=== PATIENT | male | born 1965 | race Caucasian/White ===

== ENCOUNTER 2016-03-18 19:42 | Inpatient (IN) | payer OTHER ==
[2016-03-18 19:47] VITALS: BMI 46.1
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
[2016-03-18] MEDS ORDERED: CLINDAMYCIN HCL 300 MG CAPSULE PO ONE (20:15)
[2016-03-18] MEDS ORDERED: KETOROLAC TROMETHAMINE 60 MG/2 ML VIAL IM ONE (20:16)
[2016-03-18] MEDS ORDERED: CLINDAMYCIN HCL 150 MG CAPSULE (FP) ONE (20:21)
[2016-03-18] MEDS ORDERED: KETOROLAC TROMETHAMINE 30 MG/1 ML VIAL ONE (20:21)
[2016-03-18 20:55] LABS: BASOPHIL 1.1 % (0-2.0); EOSINOPHIL 1.1 % (0-4.5); MCH 30.4 pg (25.7-33.7); MCHC 32.9 g/dl (32.0-35.9); MEAN CELL VOLUME 92.4 fl (80-96); MEAN PLT VOLUME 8.7 fl (7.5-11.1); NEUTROPHILS 70.5 % (42.8-82.8); PLATELET COUNT 191 K/MM3 (134-434); RDW 12.4 % (11.9-15.9)
[2016-03-18 21:07] LABS: ALBUMIN 3.4 g/dl (3.5-5.0); BILIRUBIN,TOTAL 2.1 mg/dl (0.2-1.0); CALCIUM 8.3 mg/dl (8.4-10.2); CPK(DFH) 347 IU/L (38-174); CREATININE 1.5 mg/dl (0.6-1.3)
[2016-03-18] MEDS ORDERED: INSULIN REGULAR HUMAN 100 UNITS/ML *VIAL IVPUSH ONE (21:15)
[2016-03-18] MEDS ORDERED: MAG HYDROX/AL HYDROX/SIMETH 30 ML UNIT-DOSE CUP PO ONE (21:18)
[2016-03-18 21:20] LABS: TROPONIN I (DFP) < 0.03 ng/ml (0.03-0.50)
[2016-03-18] MEDS ORDERED: INSULIN REGULAR HUMAN 100 UNITS/ML *VIAL ONE ×2 (21:20→22:32)
[2016-03-18] MEDS ORDERED: MAG HYDROX/AL HYDROX/SIMETH 30 ML UNIT-DOSE CUP ONE (21:25)
[2016-03-18 21:27] LABS: CK MB 3.8 ng/ml (0.3-4.0)
--- NOTE | 2016-03-18 21:42 | HP ---
CHIEF COMPLAINT: Chest Pain, Tooth pain/ Facial Swelling, Cold Symptoms PCP: Dr. Reymundo Huertas HISTORY OF PRESENT ILLNESS: This is a 50 year old man with a past medical history of Hypertension, Pre Diabetes(diet controlled), Morbid Obesity, Chronic Back Pain, Knee/Shoulder Pain , MRSA- Cellulitis RLE. Who presents to the emergency department with non- radiating chest pain, SOB x pm. Patient reports stress as part of the problem. He states "I was waiting to be seen by an [facility] doctor for a work related injury and the doctor never showed up, and I was upset and frustrated" He reports while sitting in his car he felt burning to his chest- heaviness " Hot senior instructional designer chest"-now resolved. He also reports having left upper molar pain and left facial swelling x 1 day. He reports having an appointment scheduled for next week for a left lower molar repair. He reports left nasal congestion, treated in the past for sinus infections. He reports having loose stools 3-5 daily without N/V abdominal pain or cramping, melena or hematochezia. Patient has not had a baseline colonoscopy. He denies any familial hx of Colorectal Ca. Patient reports weight gain approx. 60lbs secondary to his inability to continue PT and his exercise since injury to his left ACL. Patient reports feeling depressed, but denies suicidal or homicidal ideation. Patient denies fever, chills, SOB, cough, AP, N/V, constipation, dysuria ER course was notable for: (1) Serum Glucose 313 (2) BP 219/97 (3) EKG NSR with no ST or TWI (4) CE neg x1 Recent Travel: None PAST MEDICAL HISTORY: See HPI PAST SURGICAL HISTORY: Right Knee Replacement Rotator Cuff Social History: Smoking: Occasional, Cigar Alcohol: None Drugs: None Family History: Non-Contributory Allergies shellfish derived Allergy (Severe, Verified 07/24/14 05:15) Hives HOME MEDICATIONS: Medication Instructions Recorded Tramadol HCl [Ultram] 50 mg PO PRN PRN 03/18/16 REVIEW OF SYSTEMS CONSTITUTIONAL: loss of appetite Absent: fever, chills, diaphoresis, generalized weakness, malaise, weight change HEENT: nasal congestion mouth swelling, facial swelling Absent: rhinorrhea, throat pain, throat swelling, difficulty swallowing, ear pain, eye pain, visual changes CARDIOVASCULAR: chest pain, Absent: syncope, palpitations, irregular heart rate, lightheadedness, peripheral edema RESPIRATORY: shortness of breath Absent: cough, dyspnea with exertion, orthopnea, wheezing, stridor, hemoptysis GASTROINTESTINAL: diarrhea Absent: abdominal pain, abdominal distension, nausea, vomiting, constipation, melena, hematochezia GENITOURINARY: Absent: dysuria, frequency, urgency, hesitancy, hematuria, flank pain, genital pain MUSCULOSKELETAL: Absent: myalgia, arthralgia, joint swelling, back pain, neck pain SKIN: Absent: rash, itching, pallor HEMATOLOGIC/IMMUNOLOGIC: Absent: easy bleeding, easy bruising, lymphadenopathy, frequent infections ENDOCRINE: Absent: unexplained weight gain, unexplained weight loss, heat intolerance, cold intolerance NEUROLOGIC: Absent: headache, focal weakness or paresthesias, dizziness, unsteady gait, seizure, mental status changes, bladder or bowel incontinence PSYCHIATRIC: depression Absent: anxiety, suicidal or homicidal ideation, hallucinations. PHYSICAL EXAMINATION Vital Signs - 24 hr 03/18/16 03/18/16 19:45 21:00 Temperature 98.1 F Pulse Rate 90 Pulse Rate [ 88 Radial] Respiratory 18 18 Rate Blood Pressure 219/97 Blood Pressure 174/98 [Left Arm] O2 Sat by Pulse 98 95 Oximetry (%) GENERAL: Awake, morbidly obese, alert, and fully oriented, in no acute distress. HEAD: Normal with no signs of trauma. EYES: Pupils equal, round and reactive to light, extraocular movements intact, sclera anicteric, conjunctiva clear. No lid lag. EARS, NOSE, THROAT: tenderness to left maxillary. Ears normal, nares patent, oropharynx clear without exudates. Moist mucous membranes. NECK: Normal range of motion, supple without lymphadenopathy, JVD, or masses. LUNGS: Breath sounds equal, clear to auscultation bilaterally. No wheezes, and no crackles. No accessory muscle use. HEART: Regular rate and rhythm, normal S1 and S2 without murmur, rub or gallop. chest pain is non-reproducible to palpation ABDOMEN: Soft, obese, nontender, not distended, normoactive bowel sounds, no guarding, no rebound, no masses. No hepatomegaly or splenomegaly. MUSCULOSKELETAL: Normal range of motion at all joints. No bony deformities or tenderness. No CVA tenderness. UPPER EXTREMITIES: 2+ pulses, warm, well-perfused. No cyanosis. No clubbing. Cap refill <2 seconds. No peripheral edema. LOWER EXTREMITIES: 2+ pulses, warm, well-perfused. No calf tenderness.+1 Bilaterally peripheral edema. NEUROLOGICAL: Cranial nerves II-XII intact. Normal speech. Normal gait. PSYCHIATRIC: Cooperative. Good eye contact. Appropriate mood and affect. SKIN: Warm, dry, normal turgor, no rashes or lesions noted. Laboratory Results - last 24 hr 03/18/16 03/18/16 03/18/16 20:31 20:31 20:31 WBC 7.0 RBC 4.67 Hgb 14.2 Hct 43.1 MCV 92.4 MCHC 32.9 RDW 12.4 Plt Count 191 D MPV 8.7 Neutrophils % 70.5 D Lymphocytes % 20.4 D Monocytes % 6.9 Eosinophils % 1.1 Basophils % 1.1 Sodium 133 L Potassium 5.3 H D Chloride 100 Carbon Dioxide 25 Anion Gap 8 BUN 15 Creatinine 1.5 H D Creat Clearance w eGFR 49.54 Random Glucose 313 H* D Calcium 8.3 L Total Bilirubin 2.1 H D AST 47 H D ALT 20 Alkaline Phosphatase 76 D Creatine Kinase 347 H D CK-MB (CK-2) 3.8 CK-MB (CK-2) Rel Index 1.1 Troponin I < 0.03 L Total Protein 6.0 L Albumin 3.4 L 03/18/16 20:31 WBC RBC Hgb Hct MCV MCHC RDW Plt Count MPV Neutrophils % Lymphocytes % Monocytes % Eosinophils % Basophils % Sodium Potassium Chloride Carbon Dioxide Anion Gap BUN Creatinine Creat Clearance w eGFR Random Glucose Calcium Total Bilirubin AST ALT Alkaline Phosphatase Creatine Kinase CK-MB (CK-2) Cancelled CK-MB (CK-2) Rel Index Troponin I Total Protein Albumin ASSESSMENT/PLAN: This is a 50 year old man with a PMHx of: HTN, Pre-DM (diet controlled), Morbid Obesity, Chronic Back/Shoulder Pain. Who presents to the ED with chest pain, SOB , L- facial/tooth pain. Admitted to Telemetry for Chest Pain r/o ACS, Uncontrolled DM, Dental Abscess for further evaluation of their emergent condition. Plan: 1. Chest Pain - Likely secondary to Stress vs ACS - Tele monitoring - HEART Score 4 - AUDI 10 - EKG reviewed no ST or TWI - CE neg x1 - Will continue to trend - Appreciate Cardiology Consult - ASA - Echo in am - Mildly elevated K, will monitor closely and treat accordingly 2. HTN - Uncontrolled - Will resume Norvasc - Consider BB - Monitor BP - Monitor renal function 3. Diabetes Mellitus - Uncontrolled - Likely secondary to Metabolic Syndrome - Insulin given in ED - BGMs - ISS - HgbA1C in am - Social Work Consult- patient reports inability to pay for DM meds - f/u with endocrinology and PCP 4. Dental Abscess - Clindamycin given in ED - Will switch to Augmentin for expanded spectrum - Percocet prn - f/u with Dental upon d/c 4. CAM - Likely secondary to heavy NSAID use vs Uncontrolled DM - Renal US 11/2014- morphologically normal kidneys with no evidence of hydronephrosis or acute pathology - Monitor renal function - f/u with Nephrology outpatient 5. Morbid Obesity - Consider Diet and exercise - f/u with Bariatrics for weight management 6. F/E/N - PO Fluids - Replete lytes prn - Low Na, Low Fat, 1800 ADA Diet 7. DVT/PPI Prophylaxis - OOB - SCDs - Heparin SQ - PPI Code Status: Patient is a Full Code Problem List - Problem (1) Chest pain Code(s): R07.9 - CHEST PAIN, UNSPECIFIED Qualifiers: Chest pain type: precordial chest pain Qualified Code(s): R07.2 - Precordial pain (2) Uncontrolled hypertension Code(s): I10 - ESSENTIAL (PRIMARY) HYPERTENSION (3) Elevated blood pressure, situational Code(s): I10 - ESSENTIAL (PRIMARY) HYPERTENSION (4) Hyperglycemia Code(s): R73.9 - HYPERGLYCEMIA, UNSPECIFIED (5) Tooth abscess Code(s): K04.7 - PERIAPICAL ABSCESS WITHOUT SINUS (6) Morbid exogenous obesity Code(s): E66.01 - MORBID (SEVERE) OBESITY DUE TO EXCESS CALORIES (7) DVT prophylaxis Code(s): ERG3732 - Visit type - Emergency Visit Emergency Visit: Yes ED Registration Date: 03/18/16 Care time: The patient presented to the Emergency Department on the above date and was hospitalized for further evaluation of their emergent condition. - New Patient This patient is new to me today: Yes Date on this admission: 03/18/16 - Critical Care Critical Care patient: No
[2016-03-18] MEDS ORDERED: HEMOQUE TEST 1 EACH EACH ONE (22:27)
[2016-03-18] MEDS ORDERED: HEPARIN NA (PORCINE) 5,000 UNITS/ML 1ML VIAL ONE (22:32)
[2016-03-18] MEDS: INSULIN SLIDING SCALE (NOVOLOG) 1 VIAL SQ SCH (22:36)
[2016-03-18] MEDS: HEPARIN NA (PORCINE) 5,000 UNITS/ML 1ML VIAL SQ SCH (22:37)
[2016-03-18 23:38] LABS: URINE APPEARANCE Clear; URINE BILIRUBIN 1+ (NEGATIVE); URINE BLOOD Trace-lysed (NEGATIVE); URINE GLUCOSE (UA) 2+ (NEGATIVE); URINE KETONE 1+ (NEGATIVE); URINE LEUK ESTERASE Negative (NEGATIVE); URINE NITRITE Negative (NEGATIVE); URINE UROBILINOGEN 1.0 E.U/dl (0.2-1.0)
[2016-03-18 23:39] LABS: URINE COLOR YELLOW; URINE PROTEIN 3+ (NEGATIVE)
[2016-03-18] MEDS ORDERED: OXYCODONE/APAP 5/325MG COMBO TABLET ONE (23:41)
[2016-03-18 23:45] LABS: URINE WBC 0-2 (3-5)
[2016-03-18 23:46] LABS: URINE BACTERIA FEW /hpf (NEGATIVE)
[2016-03-18] MEDS: OXYCODONE/APAP 5/325MG COMBO TABLET PO PRN (23:47)
[2016-03-19] MEDS ORDERED: amLODIPine BESYLATE 10 MG TABLET (FP) PO ONE (00:21)
[2016-03-19] MEDS ORDERED: amLODIPine BESYLATE 5 MG TABLET (FP) ONE (00:32)
[2016-03-19] MEDS ORDERED: ASPIRIN 81 MG CHEWABLE TABLETS PO ONE (02:31)
[2016-03-19 02:49] LABS: TROPONIN I < 0.02 ng/ml (0.00-0.05)
[2016-03-19] MEDS: HEPARIN NA (PORCINE) 5,000 UNITS/ML 1ML VIAL SQ SCH ×3 (05:30→21:17)
[2016-03-19] MEDS: OXYCODONE/APAP 5/325MG COMBO TABLET PO PRN ×3 (05:30→18:19)
[2016-03-19 06:27] LABS: BASOPHIL 0.4 % (0-2.0); EOSINOPHIL 1.5 % (0-4.5); MCH 30.5 pg (25.7-33.7); MCHC 32.1 g/dl (32.0-35.9); MEAN CELL VOLUME 95.1 fl (80-96); MEAN PLT VOLUME 9.3 fl (7.5-11.1); NEUTROPHILS 63.7 % (42.8-82.8); PLATELET COUNT 206 K/MM3 (134-434); RDW 13.3 % (11.9-15.9); WHITE BLOOD COUNT 7.1 K/mm3 (4.0-10.0)
[2016-03-19] MEDS: INSULIN SLIDING SCALE (NOVOLOG) 1 VIAL SQ SCH ×4 (06:44→21:18)
[2016-03-19] MEDS ORDERED: LABETALOL HCL 5 MG/1 ML (100MG/20 ML VIAL) IVPUSH ONE ×2 (06:44→10:45)
[2016-03-19 06:52] LABS: CALCIUM 8.7 mg/dL (8.5-10.1); CREATININE 1.3 mg/dL (0.7-1.3); MAGNESIUM 2.1 mg/dL (1.8-2.4); PHOSPHOROUS 3.5 mg/dL (2.5-4.9)
[2016-03-19 06:57] LABS: TROPONIN I < 0.02 ng/ml (0.00-0.05)
[2016-03-19 07:03] LABS: THYROID STIMULATING HORMONE 1.93 uIU/ml (0.358-3.74)
[2016-03-19 07:08] LABS: CHOLESTEROL 166 mg/dL (50-200); LDL CHOLESTEROL (ONLY SJRH) 88 mg/dL (5-100)
[2016-03-19] MEDS ORDERED: AMOX TR/POT CLAV 875MG/125MG TABLETS (FP) PO SCH (08:00)
--- NOTE | 2016-03-19 08:18 | PN ---
Physical Exam: SUBJECTIVE: Patient seen and examined, patient reports pain to left-sided face, patient denies any chest pain or shortness of breath he reports his chest pain resolved after taking Mylanta yesterday OBJECTIVE: patient is a 50 y/o male with a past medical history of hypertension , IDDM, and cellulitis. Patient reported one episode of chest pain yesterday that resolved after Mylanta. He was admitted from the emergency department for malignant hypertension. Vital Signs Period Temp Pulse Resp BP Sys/Kay Pulse Ox Last 24 Hr 97.9 F-98.4 F 87-89 18-18 160-194/84-111 98-99 PHYSICAL EXAMINATION GENERAL: The patient is awake, alert, and fully oriented, in no acute distress. HEAD: Normal with no signs of trauma EYES: PERRL, extraocular movements intact, sclera anicteric, conjunctiva clear. No ptosis. ENT: Ears normal, nares patent, oropharynx clear without exudates, dry mucous membranes. left upper 2nd molar, cracked, erythema to gumline, poor dentition erythema to soft palate, tender left maxilary sinus, no trismus noted, slight erythema noted to left cheek, no induration. no fluctance noted NECK: Trachea midline, full range of motion, supple. LUNGS: Breath sounds equal, clear to auscultation bilaterally, no wheezes, no crackles, no accessory muscle use. HEART: Regular rate and rhythm, S1, S2 without murmur, rub or gallop. ABDOMEN: Soft, nontender, nondistended, normoactive bowel sounds, no guarding, no rebound, no hepatosplenomegaly, no masses. EXTREMITIES: 2+ pulses, warm, well-perfused, no edema. NEUROLOGICAL: Cranial nerves II through XII grossly intact. Normal speech, gait not observed. PSYCH: Normal mood, normal affect. SKIN: Warm, dry, normal turgor, no rashes or lesions noted Laboratory Results - last 24 hr 03/18/16 03/19/16 03/19/16 23:30 01:45 01:45 WBC RBC Hgb Hct MCV MCHC RDW Plt Count MPV Neutrophils % Lymphocytes % Monocytes % Eosinophils % Basophils % Sodium Potassium Chloride Carbon Dioxide Anion Gap BUN Creatinine POC Glucometer Random Glucose Calcium Phosphorus Magnesium Creatine Kinase Cancelled 330 H Creatine Kinase Index 0.8 CK-MB (CK-2) 2.603 Troponin I Cancelled < 0.02 Triglycerides Cholesterol Total LDL Cholesterol HDL Cholesterol TSH Urine Color Yellow Urine Appearance Clear Urine pH 6.0 Ur Specific [place] >= 1.030 H Urine Protein 3+ H Urine Glucose (UA) 2+ H Urine Ketones 1+ H Urine Blood Trace-lysed Urine Nitrite Negative Urine Bilirubin 1+ H Urine Urobilinogen 1.0 e.u/dl Ur Leukocyte Esterase Negative Urine RBC 2-3 Urine WBC 0-2 Urine Bacteria Few 03/19/16 03/19/16 03/19/16 05:40 05:40 05:40 WBC 7.1 RBC 5.13 Hgb 15.6 Hct 48.8 MCV 95.1 MCHC 32.1 RDW 13.3 Plt Count 206 MPV 9.3 Neutrophils % 63.7 Lymphocytes % 25.6 D Monocytes % 8.8 D Eosinophils % 1.5 D Basophils % 0.4 Sodium 139 Potassium 4.0 Chloride 103 Carbon Dioxide 30 Anion Gap 6 L BUN 17 Creatinine 1.3 POC Glucometer Random Glucose 180 H Calcium 8.7 Phosphorus 3.5 Magnesium 2.1 Creatine Kinase 322 H Creatine Kinase Index CK-MB (CK-2) Troponin I < 0.02 Triglycerides Cholesterol Total LDL Cholesterol HDL Cholesterol TSH 1.93 D Urine Color Urine Appearance Urine pH Ur Specific [place] Urine Protein Urine Glucose (UA) Urine Ketones Urine Blood Urine Nitrite Urine Bilirubin Urine Urobilinogen Ur Leukocyte Esterase Urine RBC Urine WBC Urine Bacteria 03/19/16 03/19/16 05:45 05:45 WBC RBC Hgb Hct MCV MCHC RDW Plt Count MPV Neutrophils % Lymphocytes % Monocytes % Eosinophils % Basophils % Sodium Potassium Chloride Carbon Dioxide Anion Gap BUN Creatinine POC Glucometer 200.97171 Random Glucose Calcium Phosphorus Magnesium Creatine Kinase Creatine Kinase Index CK-MB (CK-2) Troponin I Triglycerides 85 Cholesterol 166 Total LDL Cholesterol 88 HDL Cholesterol 69 TSH Urine Color Urine Appearance Urine pH Ur Specific [place] Urine Protein Urine Glucose (UA) Urine Ketones Urine Blood Urine Nitrite Urine Bilirubin Urine Urobilinogen Ur Leukocyte Esterase Urine RBC Urine WBC Urine Bacteria Laboratory Tests 03/18/16 03/19/16 03/19/16 20:31 01:45 05:40 Troponin I < 0.03 L < 0.02 < 0.02 Active Medications Generic Name Dose Route Start Last Admin Trade Name Freq PRN Reason Stop Dose Admin Amlodipine Besylate 10 mg 03/20/16 10:00 Norvasc - PO DAILY JAY Amoxicillin/Clavulanate Potassium 1 tab 03/19/16 08:00 03/19/16 07:37 Augmentin - 875mg Tablet PO 1 tab BID@0800,1730 JAY Administration Heparin Sodium (Porcine) 5,000 unit 03/18/16 22:15 03/19/16 05:30 Heparin - SQ 5,000 unit TID JAY Administration Insulin Aspart 1 vial 03/18/16 22:00 03/19/16 06:44 Novolog Vial Sliding Scale - SQ 2 units ACHS JAY Administration Protocol Lactobacillus Acidophilus 1 tab 03/19/16 10:00 Bacid - PO DAILY JAY Oxycodone/Acetaminophen 2 combo 03/18/16 23:29 03/19/16 05:30 Percocet 5/325 - PO 2 combo Q6H PRN Administration PAIN LEVEL 6-10 Pantoprazole Sodium 20 mg 03/19/16 10:00 Protonix - PO BID [facility] ASSESSMENT/PLAN: 1. Card: Chest Pain r/o acs - less likely ACS pt report pain resolved after mylanta - troponin x 3 WNL - continous cardiac monitoring - continue daily ASA Hypertension - pmh of hypertension, has not taking BP medication due to financial constraints - restart norvasc, labetolol 10mg ordered, will start atenolol, b/p better controlled, strict monitoring - pending ECHO - appreciate cardiology input 2) Endo:IDDM - continue fingersticks achs with regular insulin coverage - pending hemoglobin a1 c 3) renal - CAM likely secondary to NSAID use vs uncontrolled HTN and IDDM - creatine 1.3 trending downward baseline 0.8 - pt appears dehydrated on exam, will give IVF - renal us (2015) noted, morphologically normal kidneys with no evidence of hydronephrosis or acute pathology 4) ID - pt was evaluated by [facility] dental clinic last week placed on clindamycin for ? abscess, worsening pain on exam with facial tenderness - pt is on augmentin, however, high clinical concern for worsening tooth abscess , appreciate ID consult for abx approval for unasyn - will need follow up with dental clinic at [facility]. F/E/N - low sodium diabetic diet ppx heparin ppi oob scc dispo: requires inpatient telemetry care Code Status: Patient is a Full Code Visit type - Emergency Visit Emergency Visit: Yes ED Registration Date: 03/18/16 Care time: The patient presented to the Emergency Department on the above date and was hospitalized for further evaluation of their emergent condition. - New Patient This patient is new to me today: Yes Date on this admission: 03/19/16 - Critical Care Critical Care patient: Yes Total Critical Care Time (in minutes): 45 Critical Care Statement: The care of this patient involved high complexity decision making to prevent further life threatening deterioration of the patient 's condition and/or to evalute & treat vital organ system(s) failure or risk of failure. - Discharge Referral Referred to [facility] Yes Physician Referral: Reymundo Huertas MD (Int Med)
[2016-03-19] MEDS ORDERED: HYDROmorphone HCL CARPU-JECT 1 MG/1 ML DISP.SYRIN IVPB ONE (08:41)
[2016-03-19] MEDS ORDERED: ONDANSETRON 4 MG/2 ML VIAL IVPB ONE (08:42)
[2016-03-19] MEDS ORDERED: SODIUM CHLORIDE 0.45% 1,000 ML IV SCH ×2 (08:45→14:52)
[2016-03-19] MEDS: amLODIPine BESYLATE 10 MG TABLET (FP) PO SCH (08:47)
--- NOTE | 2016-03-19 10:27 | PN ---
Progress Note (short form) - Note Progress Note: ID Consult dictated Dental infection/ possible abscess Facial cellulitis Morbid obesity Chest pain syndrome Empiric coverage, mouth nora with Unasyn 3gm IVPB q6h Outpatient dental evaluation
[2016-03-19] MEDS: ATENOLOL 25 MG TABLET (FP) PO SCH (10:30)
[2016-03-19] MEDS: PANTOPRAZOLE 20 MG TABLET (FP) PO SCH ×2 (10:30→21:17)
[2016-03-19] MEDS: ASPIRIN 81 MG CHEWABLE TABLETS PO SCH (10:30)
[2016-03-19] MEDS: LACTOBACILLUS ACIDOPHILUS 1 EACH TAB (FP) PO SCH (10:30)
[2016-03-19] MEDS: AMPICILLIN NA/SULBACTAM NA 3 GM in SODIUM CHLORIDE 100 ML IVPB SCH ×3 (11:00→21:17)
--- NOTE | 2016-03-19 11:42 | EKG ---
Test Reason : Blood Pressure : / mmHG Vent. Rate : 089 BPM Atrial Rate : 089 BPM P-R Int : 152 ms QRS Dur : 112 ms QT Int : 368 ms P-R-T Axes : 054 -08 057 degrees QTc Int : 447 ms NORMAL SINUS RHYTHM NON-SPECIFIC INTRA-VENTRICULAR CONDUCTION DELAY NO PREVIOUS ECGS AVAILABLE Confirmed by KIMBER NAILS MD ([id number]) on 03/19/2016 11:42:22 AM Referred By: Confirmed By:KIMBER NAILS MD
--- NOTE | 2016-03-19 11:54 | CONS ---
DATE OF CONSULTATION: DATE OF DICTATION: 03/19/2016 HISTORY OF PRESENT ILLNESS: The patient is a 50-year-old male who is evaluated for facial cellulitis. He is admitted to the hospital for evaluation of chest pain syndrome. He was incidentally found to have left facial cellulitis. The patient reports that he has had recent dentil issues. He has a crown, which recently broke and was causing him discomfort. He was scheduled to see a dentist within the next week. Over the past 24 hours, he developed pain, swelling, and redness involving the left malar area. He presented to the hospital with his chest pain syndrome and was noted to have a facial cellulitis. He denies any associated fever or chills. No reports of any facial trauma. Patient has had a history of cellulitis of the left lower extremity for which he was hospitalized in 2014. He is morbidly obese with prediabetes. PAST MEDICAL HISTORY: Positive for morbid obesity, hypertension, prediabetes, left leg cellulitis. ALLERGIES: To SHELLFISH. MEDICATIONS: Heparin, Bacid, Tenormin, Normodyne, Norvasc, aspirin, Percocet, Protonix. SOCIAL HISTORY: He is presently disabled secondary to orthopedic issues. He is a smoker. No history of illicit drug use. SYSTEMS REVIEW: Neurologic: No loss of consciousness, seizure activity, or focal weakness. Cardiac: As per HPI. Respiratory: Negative for cough or sputum production. Gastrointestinal: Negative for vomiting or diarrhea. Genitourinary: As per HPI. LABORATORY DATA: White count 7.1, hematocrit 48.8, platelet count 206. BUN 17, creatinine 1.3. Urinalysis 0-2 white cells. PHYSICAL EXAMINATION: General: He is awake and alert. He is not acutely toxic-appearing. He is morbidly obese. Vital signs: Temperature 97.9, blood pressure 160/84, pulse 89 and regular, respirations 20 per minute. HEENT: Sclerae anicteric. There is an area of erythema, induration, tenderness present over the left malar area. No fluctuance or crepitus. Examination of the mouth shows he has a missing left upper 2nd molar with exposed tooth fragments. No gingival erythema. Mild gingival swelling. No will pus. Neck: Supple with no palpable nodes. Heart: Heart sounds S1, S2. Lungs: Clear. Abdomen: Obese, soft, nontender. Extremities: Positive for edema. IMPRESSION: 1. Dental infection/possible dental abscess. 2. Facial cellulitis secondary to dental infection. 3. Morbid obesity. 4. Chest pain syndrome. Empiric coverage mouth floor with Unasyn 3 g IV piggyback every 6 hours, outpatient dental evaluation, cardiac workup. Thank you for the kind referral. KIMBER CESAR M.D. [id number]
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
[2016-03-19] MEDS ORDERED: PT OWN MED DRAWER 7, Y5N ONE ×2 (16:07→20:51)
[2016-03-19 22:12] LABS: URINE APPEARANCE Clear; URINE BILIRUBIN Negative (NEGATIVE); URINE BLOOD Trace-intact (NEGATIVE); URINE GLUCOSE (UA) 3+ (NEGATIVE); URINE KETONE Negative (NEGATIVE); URINE LEUK ESTERASE Negative (NEGATIVE); URINE NITRITE Negative (NEGATIVE); URINE UROBILINOGEN 0.2 E.U/dl (0.2-1.0)
[2016-03-19 22:36] LABS: URINE CREATININE 120.2 mg/dL
[2016-03-19 22:38] LABS: URINE COLOR YELLOW; URINE PROTEIN 2+ (NEGATIVE); URINE RBC 0-2 /hpf (0-3); URINE WBC 0-1 (3-5)
[2016-03-19 22:39] LABS: URINE BACTERIA FEW /hpf (NEGATIVE)
[2016-03-20] MEDS ORDERED: PT OWN MED DRAWER 7, Y5N ONE ×3 (02:14→09:50)
[2016-03-20] MEDS: OXYCODONE/APAP 5/325MG COMBO TABLET PO PRN ×2 (02:20→12:30)
[2016-03-20] MEDS: AMPICILLIN NA/SULBACTAM NA 3 GM in SODIUM CHLORIDE 100 ML IVPB SCH ×2 (02:21→09:58)
[2016-03-20 06:02] VITALS: BP 149/80; PULSE 77; TEMP 98.4
[2016-03-20] MEDS: HEPARIN NA (PORCINE) 5,000 UNITS/ML 1ML VIAL SQ SCH (06:45)
[2016-03-20] MEDS: INSULIN SLIDING SCALE (NOVOLOG) 1 VIAL SQ SCH ×2 (07:35→12:31)
[2016-03-20 08:39] LABS: CALCIUM 8.7 mg/dl (8.4-10.2)
--- NOTE | 2016-03-20 09:29 | PN ---
Progress Note, Physician History of Present Illness: Reports less L facial pain No c/o dental pain No fever/ chills - Current Medication List Current Medications: Active Medications Amlodipine Besylate (Norvasc -) 10 mg PO DAILY [facility] Last Admin: 03/19/16 08:47 Dose: 10 mg Aspirin (Asa -) 81 mg PO DAILY [facility] Last Admin: 03/19/16 10:30 Dose: 81 mg Atenolol (Tenormin -) 25 mg PO DAILY [facility] Last Admin: 03/19/16 10:30 Dose: 25 mg Heparin Sodium (Porcine) (Heparin -) 5,000 unit SQ TID [facility] Last Admin: 03/20/16 06:45 Dose: 5,000 unit Ampicillin Sodium/Sulbactam (Sodium 3 gm/ Sodium Chloride) 100 mls @ 200 mls/ hr IVPB Q6H-IV [facility] Last Admin: 03/20/16 02:21 Dose: 200 mls/hr Insulin Aspart (Novolog Vial Sliding Scale -) 1 vial SQ ACHS [facility] PRN Reason: Protocol Last Admin: 03/20/16 07:35 Dose: 2 units Lactobacillus Acidophilus (Bacid -) 1 tab PO DAILY [facility] Last Admin: 03/19/16 10:30 Dose: 1 tab Oxycodone/Acetaminophen (Percocet 5/325 -) 2 combo PO Q6H PRN PRN Reason: PAIN LEVEL 6-10 Last Admin: 03/20/16 02:20 Dose: 2 combo Pantoprazole Sodium (Protonix -) 20 mg PO BID [facility] Last Admin: 03/19/16 21:17 Dose: 20 mg - Objective Vital Signs: Vital Signs Temperature 98.4 F 03/20/16 06:00 Pulse Rate 77 03/20/16 06:00 Respiratory Rate 20 03/20/16 06:00 Blood Pressure 149/80 03/20/16 06:00 O2 Sat by Pulse Oximetry (%) 97 03/20/16 06:00 Constitutional: Yes: No Distress, Obese Eyes: Yes: Conjunctiva Clear HENT: Yes: Other (L facial erythema/ swelling) Cardiovascular: Yes: Regular Rate and Rhythm, S1, S2 Respiratory: Yes: CTA Bilaterally Gastrointestinal: Yes: Normal Bowel Sounds, Soft, Abdomen, Obese. No: Tenderness Labs: CBC, BMP 03/19/16 05:40 01/14/17 08:00 Assessment/Plan Dental infection , probable abscess L facial cellulitis Chest pain syndrome Morbid obesity May substitute Augmentin XR 2gm po bid at discharge Needs dental evaluation
[2016-03-20] MEDS: PANTOPRAZOLE 20 MG TABLET (FP) PO SCH (09:58)
[2016-03-20] MEDS: amLODIPine BESYLATE 10 MG TABLET (FP) PO SCH (09:58)
[2016-03-20] MEDS: LACTOBACILLUS ACIDOPHILUS 1 EACH TAB (FP) PO SCH (09:58)
[2016-03-20] MEDS: ASPIRIN 81 MG CHEWABLE TABLETS PO SCH (09:58)
[2016-03-20] MEDS: ATENOLOL 25 MG TABLET (FP) PO SCH (09:58)
[2016-03-20] MEDS ORDERED: ARFORMOTEROL TARTRATE 15 MCG/2 ML VIAL NEB ONE (10:01)
[2016-03-20 11:45] LABS: CPK(DFH) 219 IU/L (38-174)
[2016-03-20] MEDS ORDERED: AMOX TR/POT CLAV 500MG/125MG TABLETS (FP) PO ONE (11:54)
[2016-03-20 12:28] LABS: TROPONIN I (DFP) < 0.03 ng/ml (0.03-0.50)
[2016-03-20 12:35] LABS: CK MB 2.7 ng/ml (0.3-4.0)
--- NOTE | 2016-03-20 12:51 | PN ---
Progress Note, Physician History of Present Illness: No new events - Current Medication List Current Medications: Active Medications Amlodipine Besylate (Norvasc -) 10 mg PO DAILY [facility] Last Admin: 03/20/16 09:58 Dose: 10 mg Amoxicillin/Clavulanate Potassium (Augmentin - 500mg Tablet) 4 tab PO ONCE ONE Stop: 03/20/16 11:55 Last Admin: 03/20/16 12:31 Dose: 4 tab Aspirin (Asa -) 81 mg PO DAILY [facility] Last Admin: 03/20/16 09:58 Dose: 81 mg Atenolol (Tenormin -) 25 mg PO DAILY [facility] Last Admin: 03/20/16 09:58 Dose: 25 mg Heparin Sodium (Porcine) (Heparin -) 5,000 unit SQ TID [facility] Last Admin: 03/20/16 06:45 Dose: 5,000 unit Insulin Aspart (Novolog Vial Sliding Scale -) 1 vial SQ ACHS [facility] PRN Reason: Protocol Last Admin: 03/20/16 12:31 Dose: Not Given Lactobacillus Acidophilus (Bacid -) 1 tab PO DAILY [facility] Last Admin: 03/20/16 09:58 Dose: 1 tab Oxycodone/Acetaminophen (Percocet 5/325 -) 2 combo PO Q6H PRN PRN Reason: PAIN LEVEL 6-10 Last Admin: 03/20/16 12:30 Dose: 2 combo Pantoprazole Sodium (Protonix -) 20 mg PO BID [facility] Last Admin: 03/20/16 09:58 Dose: 20 mg - Objective Vital Signs: Vital Signs Temperature 98.4 F 03/20/16 06:00 Pulse Rate 77 03/20/16 06:00 Respiratory Rate 20 03/20/16 06:00 Blood Pressure 149/80 03/20/16 06:00 O2 Sat by Pulse Oximetry (%) 97 03/20/16 06:00 Constitutional: Yes: Obese Eyes: Yes: Conjunctiva Clear HENT: Yes: Atraumatic Neck: Yes: Supple Cardiovascular: Yes: Regular Rate and Rhythm. No: Murmur Respiratory: Yes: CTA Bilaterally Gastrointestinal: Yes: Normal Bowel Sounds, Soft, Abdomen, Obese Extremities: Yes: Other (warm) Edema: No Peripheral Pulses WNL: Yes Neurological: Yes: Alert, Oriented Psychiatric: Yes: Alert, Oriented Labs: CBC, BMP 03/19/16 05:40 03/20/16 08:00 - ....Imaging Other: Other (tele -. SR Echo (03/19/15) -. Mild LVE with nl EF, mild DD, nl PASP, mild AR dil) Assessment/Plan 50 yo morbidly obese male with the above history, here with acute onset of chest burning and headaches in setting of being upset -. found with BP 219/97, renal failure (in setting of NSAIDS use), mild rhaddo -. symptoms better with mylanta. No evidence of ACS or CHF. Patient has not been on meds since 01/19 and has since put on most of the wt he had lost Renal function better Dental infection -. ID seeing Remains stable Echo with nl EF Rec: Cont BP meds, but should be on DIANNE-I/ARB if ok with renal -. an be added a soutppt Patient should be further evaluated with outpt nuclear once stabalized Ok to d/c from cardiac standpoint Thanks! D/W Mustapha Owusu
--- NOTE | 2016-03-20 13:12 | DS ---
Physical Exam: SUBJECTIVE: Patient seen and examined. Left upper molar pain persists. Using ice pack. OBJECTIVE: Vital Signs Period Temp Pulse Resp BP Sys/Kay Pulse Ox Last 24 Hr 98.3 F-98.8 F 77-81 18-20 149-158/73-80 96-97 PHYSICAL EXAM GENERAL: The patient is awake, alert, and fully oriented, in no acute distress. HEAD: Normal with no signs of trauma. No facial swelling or erythema observed. EYES: PERRL, extraocular movements intact, sclera anicteric, conjunctiva clear. LUNGS: Breath sounds equal, clear to auscultation bilaterally, no wheezes, no crackles, no accessory muscle use. HEART: Regular rate and rhythm, S1, S2 without murmur, rub or gallop. ABDOMEN: Soft, nontender, nondistended, normoactive bowel sounds, no guarding, no rebound, no hepatosplenomegaly, no masses. EXTREMITIES: 2+ pulses, warm, well-perfused, no edema. NEUROLOGICAL: Cranial nerves II through XII grossly intact. Normal speech, steady gait. Laboratory Results - last 24 hr 03/19/16 03/19/16 03/19/16 14:55 18:14 21:01 Sodium Potassium Chloride Carbon Dioxide Anion Gap BUN Creatinine POC Glucometer 285 220 238 Random Glucose Calcium Creatine Kinase CK-MB (CK-2) CK-MB (CK-2) Rel Index Troponin I Urine Color Urine Appearance Urine pH Ur Specific [place] Urine Protein Urine Glucose (UA) Urine Ketones Urine Blood Urine Nitrite Urine Bilirubin Urine Urobilinogen Ur Leukocyte Esterase Urine RBC Urine WBC Urine Bacteria U Random Total Protein Urine Creatinine Protein/Creatinin Ratio 03/19/16 03/19/16 03/20/16 22:00 22:00 06:37 Sodium Potassium Chloride Carbon Dioxide Anion Gap BUN Creatinine POC Glucometer 157 Random Glucose Calcium Creatine Kinase CK-MB (CK-2) CK-MB (CK-2) Rel Index Troponin I Urine Color Yellow Urine Appearance Clear Urine pH 6.0 Ur Specific [place] 1.020 Urine Protein 2+ H Urine Glucose (UA) 3+ H Urine Ketones Negative Urine Blood Trace-intact Urine Nitrite Negative Urine Bilirubin Negative Urine Urobilinogen 0.2 e.u/dl Ur Leukocyte Esterase Negative Urine RBC 0-2 Urine WBC 0-1 Urine Bacteria Few U Random Total Protein 45 H Urine Creatinine 120.2 Protein/Creatinin Ratio 0.398 03/20/16 03/20/16 03/20/16 08:00 11:00 11:00 Sodium 139 Potassium 4.3 Chloride 103 Carbon Dioxide 28 Anion Gap 8 BUN 13 Creatinine 1.0 D POC Glucometer Random Glucose 195 H D Calcium 8.7 Creatine Kinase 219 H D CK-MB (CK-2) 2.7 Cancelled CK-MB (CK-2) Rel Index 1.2 Troponin I < 0.03 L Urine Color Urine Appearance Urine pH Ur Specific [place] Urine Protein Urine Glucose (UA) Urine Ketones Urine Blood Urine Nitrite Urine Bilirubin Urine Urobilinogen Ur Leukocyte Esterase Urine RBC Urine WBC Urine Bacteria U Random Total Protein Urine Creatinine Protein/Creatinin Ratio 03/20/16 12:17 Sodium Potassium Chloride Carbon Dioxide Anion Gap BUN Creatinine POC Glucometer 178 Random Glucose Calcium Creatine Kinase CK-MB (CK-2) CK-MB (CK-2) Rel Index Troponin I Urine Color Urine Appearance Urine pH Ur Specific [place] Urine Protein Urine Glucose (UA) Urine Ketones Urine Blood Urine Nitrite Urine Bilirubin Urine Urobilinogen Ur Leukocyte Esterase Urine RBC Urine WBC Urine Bacteria U Random Total Protein Urine Creatinine Protein/Creatinin Ratio HOSPITAL COURSE: Date of Admission:03/18/16 Date of Discharge: 03/20/16 50 year-old man with a PMH of HTN, diabetes (on no meds), morbid obesity, chronic back/knee/shoulder pain, and RLE cellulitis. Presented to the emergency department with non-radiating chest pain and SOB. Patient reported stress as part of the problem. He stated "I was waiting to be seen by an [facility] doctor for a work-related injury and the doctor never showed up, and I was upset and frustrated." He reported while sitting in his car he felt burning in his chest , like a "hot poker." Patient reported taking motrin frequently since January 2016 because he ran out of [employer]. Patient also reported left upper molar pain and left facial swelling x 1 day. He reported having an appointment scheduled for next week for a left lower molar repair. He reported left nasal congestion, treated in the past for sinus infections. ER course was notable for: (1) Serum Glucose 313 (2) BP 219/97 (3) EKG NSR with no ST or TWI (4) CE neg x1 Subsequent hospital course Atypical chest pain --ACS r/o: troponins negative x 3; CXR unremarkable; ECG not suggestive of ischemia; 03/19 echo: LV normal, Grade I diastolic dysfunction; RV normal; trace TR --seen and evaluated by cardiology, should get stress as outpatient Hypertensive urgency --initial BP 219/97, trended down to 149/80 today --was not on home meds --started on atenolol and amlodipine, gave scripts on discharge Acute kidney injury, resolved --likely seconday to NSAID use --Cr 1.5 on admission, today 1.0 --will follow up with Dr. Gilbert and PCP; spoke with Dr. Gilbert, he will follow up +GEOFF and consider whether to add DIANNE/ARB Left upper molar abscess --evaluated and treated by ID --given Unsayn x 5 doses --discharged on Augmentin 2g BID x 7 days --patient to be seen at [facility] on 03/23; delay is due to holiday weekend Diabetes Mellitus --HgbA1C 9.9 --will follow up with Dr. Huertas Minutes to complete discharge: 35 Discharge Summary Reason For Visit: CHEST PAIN Current Active Problems CAM (acute kidney injury) (Acute) Chest pain (Acute) DVT prophylaxis (Acute) Tooth abscess (Acute) Uncontrolled hypertension (Acute) Condition: Stable - Instructions Diet, Activity, Other Instructions: Four prescriptions have been sent to your pharmacy. The first is for Augmentin which is an antibiotic. The second is for Percocet which is a pain reliever. The third is atenolol and the fourth is amlodipine. These medications are for your high blood pressure. Take all these medications as directed. It is very important you go to the [facility] Clinic at the [facility] on Tuesday to have your tooth abscess evaluated and treated. It is recommended you follow up with Dr. Gilbert, the kidney doctor who saw you in the hospital. His contact information is enclosed. It is also important that you contact your primary care provider, Dr. Huertas, on Tuesday and tell him of your hospital stay and that you are receiving ongoing antibiotic therapy for a tooth abscess. Return to the emergency room IMMEDIATELY if you develop a fever or worsening pain. Referrals: Reymundo Huertas MD [Primary Care Provider] - Disposition: HOME - Home Medications Comprehensive Discharge Medication List: Ambulatory Orders Amlodipine Besylate [Norvasc -] 10 mg PO DAILY #30 tablet 03/20/16 Amoxicillin/Potassium Clav [Augmentin 500-125 Tablet] 4 each PO BID #56 tablet MDD 8 03/20/16 Atenolol [Tenormin -] 25 mg PO DAILY #30 tablet 03/20/16 Oxycodone HCl/Acetaminophen [Percocet 10-325 mg Tablet] 1 each PO Q6H PRN #15 tablet MDD 4 03/20/16 Tramadol HCl [Ultram] 50 mg PO Q6H PRN #15 tablet MDD 4 03/20/16 This patient is new to me today: Yes Date on this admission: 03/20/16 Emergency Visit: Yes ED Registration Date: 03/18/16 Care time: The patient presented to the Emergency Department on the above date and was hospitalized for further evaluation of their emergent condition. Critical Care patient: No - Discharge Referral Referred to [facility] Yes Physician Referral: Reymundo Huertas MD (Int Med)
== END 2016-03-20 14:00 | disposition home or self-care (01) | DRG 313 ==
LOC: FER 19:42 → FM/S 23:16
PROVIDERS: ADMIT Internal Medicine; ATTEND Nurse Practitioner Acute Care
DX: R07.89 Other chest pain (principal); N17.9 Acute kidney failure, unspecified; Z68.42 Body mass index [BMI] 45.0-49.9, adult; I10 Essential (primary) hypertension; K04.7 Periapical abscess without sinus; E66.01 Morbid (severe) obesity due to excess calories; E11.65 Type 2 diabetes mellitus with hyperglycemia
CPT/HCPCS: 36415; 71010-TC; 80048; 80053; 80061; 81003; 81015; 82550; 82553; 82570; 83036; 83721; 83735; 84100; 84156; 84443; 84484; 85025; 93005; 93306-TC; 99285-25; J1644

== ENCOUNTER 2017-09-11 18:10 | Emergency (ER) | payer OTHER ==
[2017-09-11 18:18] VITALS: TEMP 98.7; BMI 47.5
--- NOTE | 2017-09-11 18:38 | PDOC ---
History of Present Illness - General Chief Complaint: Cold Symptoms Stated Complaint: COUGH Time Seen by Provider: 09/11/17 18:23 History Source: Patient Exam Limitations: No Limitations - History of Present Illness Initial Comments: 09/11/17 19:07 Pt with PMH of uncontrolled HTN and DM, presents with 1 week of sore throat and cough. Pt states cough has been worsening over the week, and he is now coughing up thick green mucus, with streaks of brown and red. He has been taking OTC spray and lozenges for his sore throat, and the pain has remained the same. He also has fevers and chills at night, SOB, nausea, lack of appetite, and increased urination due to increased water intake. He denies headache, vomiting , diarrhea or constipation, loss of muscle strength or sensation. He has not been taking his diabetes medication due to financial cost for past 6 months. 09/11/17 19:23 09/11/17 19:42 Past History - Travel Traveled outside of the country in the last 30 days: No Close contact w/someone who was outside of country & ill: No - Past Medical History Allergies/Adverse Reactions: Allergies Allergy/AdvReac Type Severity Reaction Status Date / Time shellfish derived Allergy Severe Hives Verified 09/11/17 18:11 Home Medications: Ambulatory Orders Acetaminophen with Codeine [Tylenol with Codeine #4 Tablet] 1 each PO ASDIR 10/22 Ramipril [Altace] 2.5 mg PO DAILY 09/11/17 Anemia: No Asthma: No Cancer: No Cardiac Disorders: No CVA: No COPD: No CHF: No Dementia: No Diabetes: Yes Dialysis: Yes GI Disorders: No Disorders: Yes HTN: Yes Hypercholesterolemia: Yes Liver Disease: No Seizures: No Thyroid Disease: No - Surgical History Abdominal Surgery: No Appendectomy: No Cardiac Surgery: No Cholecystectomy: No Lung Surgery: No Neurologic Surgery: No Orthopedic Surgery: Yes (5 RIGHT KNEE SCOPES 1 RIGHT ACL REPAIR WITH SUBSEQUENT REMOVAL OF HARDWARE) - Immunization History Immunization Up to Date: Yes - Suicide/Smoking/Psychosocial Hx Smoking History: Unknown if ever smoked Have you smoked in the past 12 months: No Number of Cigarettes Smoked Daily: 0 If you are a former smoker, when did you quit?: OCCASIONAL CIGAR Information on smoking cessation initiated: Yes 'Breaking Loose' booklet given: 09/11/17 Hx Alcohol Use: Yes Drug/Substance Use Hx: No Substance Use Type: Alcohol Hx Substance Use Treatment: No Review of Systems - Review of Systems Able to Perform ROS?: Yes Is the patient limited Frisian proficient: No Constitutional: Yes: Chills, Fever, Loss of Appetite, Malaise, Night Sweats. No : Diaphoresis, Unintentional Wgt. Loss, Unexplained wgt Loss HEENTM: Yes: Throat Pain, Throat Swelling. No: Blurred Vision, Recent change in vision, Ear Discharge, Difficulty Swallowing Respiratory: Yes: Cough, Shortness of Breath, SOB with Exertion, Productive cough (productive cough of green and brown tinged sputum.). No: Orthopnea Cardiac (ROS): Yes: Edema (LE swelling, worse on left foot/ankle.). No: Chest Pain, Irregular Heart Rate, Lightheadedness, Palpitations, Syncope, Chest Tightness ABD/GI: Yes: Nausea, Poor Appetite. No: Abdominal Distended, Blood Streaked Bowels, Constipated, Diarrhea, Difficulty Swallowing, Poor Fluid Intake, Vomiting : No: Burning, Dysuria, Discharge, Frequency, Pain, Urgency Musculoskeletal: No: Back Pain, Joint Pain Integumentary: No: Bruising, Rash Neurological: No: Headache, Numbness, Seizure, Tingling Psychiatric: No: Sleep Pattern Change Endocrine: Yes: Increased Thirst, Increased Urine. No: Excessive Sweating, Change in Weight Hematologic/Lymphatic: No: Anemia, Easy Bruising *Physical Exam - Vital Signs Last Vital Signs Temp Pulse Resp BP Pulse Ox 98.7 F 81 18 194/117 98 09/11/17 18:12 09/11/17 18:12 09/11/17 18:12 09/11/17 18:12 09/11/17 18:12 - Physical Exam General Appearance: Yes: Nourished, Appropriately Dressed, Mild Distress, Obese HEENT: positive: EOMI, CARLOS, Normal Voice, Symmetrical, TMs Normal, Tonsillar Erythema, Hearing Grossly Normal. negative: Pharyngeal Erythema, Tonsillar Exudate, Nasal Congestion, Rhinorrhea, TM Bulging, TM Erythema Neck: positive: Trachea midline, Normal Thyroid, Supple. negative: Tender, Rigid, Lymphadenopathy (R), Lymphadenopathy (L) Respiratory/Chest: positive: Labored Respiration, Decreased Breath Sounds ( decreased breath sounds over posterior lung bases.). negative: Chest Tender, Lungs Clear, Normal Breath Sounds, Respiratory Distress, Accessory Muscle Use, Wheezing, Hyperresonant, Dullness Cardiovascular: positive: Regular Rhythm, Regular Rate Vascular Pulses: Dorsalis-Pedis (R): 4+, Doralis-Pedis (L): 4+ Gastrointestinal/Abdominal: positive: Normal Bowel Sounds, Flat, Soft. negative : Tender, Organomegaly, Pulsatile Mass Lymphatic: negative: Adenopathy, Tenderness Musculoskeletal: positive: Normal Inspection. negative: CVA Tenderness Extremity: positive: Normal Capillary Refill, Pedal Edema (+1 pedal edema b/l) Integumentary: positive: Normal Color, Dry, Warm Neurologic: positive: studio operation engineer II-XII NML intact, Fully Oriented, Alert, Normal Mood/ Affect, Normal Response, Motor Strength 07/09 ED Treatment Course - RADIOLOGY Radiology Studies Ordered: 09/11/17 19:50 chest x-ray Radiograph Interpretation: 09/11/17 19:50 results pending at time of sign-out Medical Decision Making - Medical Decision Making Pt examined and sent for chest x-ray (r/o pneumonia). IV placed and labs ordered. Fingerstick blood glucose out of range. CBC, CMP, serum acetone, UA, VBG, due to concern for DKA (uncontrolled DM). 09/11/17 19:04 Rapid influenza and strep sent to lab. Awaiting labs. 09/11/17 19:[address] Mcneill provided insulin due to increased blood glucose. Strep test negative. Awaiting further labs. Signed out with next attending physician. 09/11/17 19:53 *DC/Admit/Observation/Transfer Diagnosis at time of Disposition: URI (upper respiratory infection), Hyperglycemia, Diabetes mellitus, insulin dependent (IDDM), uncontrolled, Uncontrolled hypertension - Referrals Referrals: Reymundo Huertas MD [Primary Care Provider] - - Patient Instructions - Post Discharge Activity
[2017-09-11] MEDS ORDERED: SODIUM CHLORIDE 0.9% 1000 ML INFUS.BAG IV ONE (19:15)
--- NOTE | 2017-09-11 19:24 | PDOC ---
Attending Attestation - Resident Resident Name: Keisha Mehta - ED Attending Attestation I have performed the following: I have examined & evaluated the patient, The case was reviewed & discussed with the resident, I agree w/resident's findings & plan, Exceptions are as noted <BoydJohna - Last Filed: 09/11/17 19:23> - HPI HPI: 09/11/17 19:26 The patient is a 51 year old male, with a significant past medical history of HLD, HTN and DM (noncompliant with medication for the past 6 months), who presents to the emergency department with, 1 week of a sore throat and worsening productive cough. He describes his sputum to initially be green, however, today having a brownish red tinge. He reports fever and chills at night. Secondary to his symptoms, he reports increased thirst which he attributes to his noncompliance with his diabetes medications. He denies any recent headache or dizziness. He denies any recent nausea, vomit, diarrhea or constipation. He denies any recent chest pain or shortness of breath. He denies any recent dysuria, frequency, urgency or hematuria. Allergies: Shellfish derived. Past surgical history: ACL repair. Primary Care Physician: Dr. Reymundo Huertas - Physicial Exam PE: 09/11/17 19:41 +GENERAL: Obese. Awake, alert, and fully oriented, in no acute distress HEAD: No signs of trauma EYES: PERRLA, EOMI, sclera anicteric, conjunctiva clear ENT: Auricles normal inspection, hearing grossly normal, nares patent. Moist mucosa NECK: Normal ROM, supple, no lymphadenopathy, JVD, or masses LUNGS: Breath sounds equal, clear to auscultation bilaterally. No wheezes, and no crackles HEART: Regular rate and rhythm, normal S1 and S2, no murmurs, rubs or gallops ABDOMEN: Soft, nontender, normoactive bowel sounds. No guarding, no rebound. No masses +EXTREMITIES: 1+ pitting edema to bilateral lower extremities. Normal range of motion. No erythema or tenderness. DP/PT pulses 2+ and symmetric. Warm and well perfused. NEUROLOGICAL: ANO x3. Moves all extremities. Normal speech, normal gait SKIN: Warm, Dry, normal turgor, no rashes or lesions noted. <John Gill - Last Filed: 09/11/17 19:42> Attestations - Attestations 09/11/17 19:26 Documentation prepared by John Gill, acting as medical assistant float for Zenaida Nix MD. <John Gill - Last Filed: 09/11/17 19:42>
[2017-09-11 19:26] LABS: BASO % 0.5 % (0-2.0); EOS % 5.1 % (0-4.5); HEMATOCRIT 42.2 % (35.4-49); HEMOGLOBIN 14.2 GM/dl (11.7-16.9); LYMPH % 28.8 % (8-40); MCH 31.9 pg (25.7-33.7); MCHC 33.7 g/dl (32.0-35.9); MEAN CELL VOLUME 94.6 fl (80-96); MEAN PLT VOLUME 8.9 fl (7.5-11.1); MONO % 6.5 % (3.8-10.2); NEUT % 59.1 % (42.8-82.8); PLATELET COUNT 247 K/MM3 (134-434); RBC 4.46 M/mm3 (4.00-5.60); RDW 12.2 % (11.9-15.9)
[2017-09-11 19:29] LABS: ALBUMIN 3.3 g/dl (3.5-5.0); ALK PHOS 89 U/L (32-92); ANION GAP 6 (8-16); BILIRUBIN,TOTAL 0.3 mg/dl (0.2-1.0); BLOOD UREA NITROGEN 18 mg/dl (7-18); CALCIUM 8.8 mg/dl (8.4-10.2); CHLORIDE 97 mmol/L (98-107); CO2 30 mmol/L (22-28); CREATININE 1.1 mg/dl (0.6-1.3); POTASSIUM 4.3 mmol/L (3.5-5.1); SGOT/AST 30 U/L (10-42); SGPT/ALT 29 U/L (10-40); SODIUM 133 mmol/L (136-145); TOT PROT 6.1 g/dl (6.4-8.3)
[2017-09-11 19:45] LABS: GLUCOSE,RANDOM 434 mg/dl (74-106)
[2017-09-11] MEDS ORDERED: INSULIN REGULAR HUMAN 100 UNITS/ML *VIAL SQ ONE ×2 (19:48→22:48)
--- NOTE | 2017-09-11 19:52 | PDOC ---
*Physical Exam - Vital Signs Last Vital Signs Temp Pulse Resp BP Pulse Ox 98.7 F 81 18 194/117 98 09/11/17 18:12 09/11/17 18:12 09/11/17 18:12 09/11/17 18:12 09/11/17 18:12 ED Treatment Course - LABORATORY CBC & Chemistry Diagram: 09/11/17 19:02 09/11/17 22:09 - ADDITIONAL ORDERS Additional order review: Laboratory Results 09/11/17 09/11/17 19:02 19:02 Sodium 133 L Potassium 4.3 Chloride 97 L Carbon Dioxide 30 H Anion Gap 6 L BUN 18 Creatinine 1.1 Creat Clearance w eGFR > 60 Random Glucose 434 H* D Calcium 8.8 Total Bilirubin 0.3 AST 30 D ALT 29 D Alkaline Phosphatase 89 Total Protein 6.1 L Albumin 3.3 L Acetone, Qual Negative 09/11/17 19:17 Group A Strep Rapid Antigen - Final Throat 09/11/17 19:02 RBC 4.46 MCV 94.6 MCHC 33.7 RDW 12.2 MPV 8.9 Neutrophils % 59.1 Lymphocytes % 28.8 Monocytes % 6.5 Eosinophils % 5.1 H D Basophils % 0.5 Medical Decision Making - Medical Decision Making As noted above, this 51-year-old man with a history of DM but noncompliance with medications for 6 months (secondary to inability to pay for his medications ) presents with one-week history of cough but also ongoing polydipsia/polyuria. Workup notable for blood glucose at presentation of 434 ; he has no evidence of acidosis with negative serum acetone. Electrolytes are normal and his serum Osm on presentation is 290. The patient's glucose decreased to 398 after 1 L of normal saline IV and 8 units of regular insulin. 09/12/17 00:05 Repeat fingerstick glucose after an additional 8 units of regular insulin is 309 The patient strongly prefers not to be admitted. He states that he will follow- up with tomorrow (appointment has already been made). Furthermore, he has social service liaison who is pursuing coverage of his diabetic medications. He is able to fill a small (#3) prescription for Jardiance, which he will start tomorrow prior to being seen by Dr. Huertas. Meanwhile, he will continue dietary modification and drink plenty of water. He will return to ER if he has worsening fatigue/thirst or excessive urination. Also, if he has fever or productive cough, he should return to the ER *DC/Admit/Observation/Transfer Diagnosis at time of Disposition: URI (upper respiratory infection), Hyperglycemia, Diabetes mellitus, insulin dependent (IDDM), uncontrolled, Uncontrolled hypertension - Discharge Dispostion Disposition: HOME Condition at time of disposition: Stable - Prescriptions Prescriptions: Empagliflozin [Jardiance] 10 mg PO DAILY #3 tablet - Referrals Referrals: Reymundo Huertas MD [Primary Care Provider] - - Patient Instructions Printed Discharge Instructions: DI for Acute Bronchitis, DI for Hyperglycemia - - Adult Additional Instructions: Jardiance 10 mg daily Drink plenty of water Follow-up with Dr. Huertas tomorrow as already arranged Return to ER if your symptoms worsen - Post Discharge Activity
[2017-09-11 20:43] LABS: VENOUS PH 7.31 (7.32-7.42); VENOUS PO2 38.2 mmHg (28-48)
[2017-09-11] MEDS ORDERED: HEMOQUE CONTROL SOLUTION ONE (21:20)
[2017-09-11 22:17] LABS: URINE APPEARANCE CLEAR; URINE BILIRUBIN NEGATIVE (NEGATIVE); URINE COLOR YELLOW; URINE GLUCOSE (UA) 3+ (NEGATIVE); URINE KETONE NEGATIVE (NEGATIVE)
[2017-09-11 22:18] LABS: URINE LEUK ESTERASE NEGATIVE (NEGATIVE); URINE NITRITE NEGATIVE (NEGATIVE); URINE PROTEIN 3+ (NEGATIVE); URINE UROBILINOGEN 0.2 (0.2-1.0)
[2017-09-11 22:26] LABS: EPI CELLS FEW /HPF
[2017-09-11 22:27] LABS: AMORP URATES FEW /hpf (NONE SEEN); URINE BACTERIA FEW /hpf (NEGATIVE)
[2017-09-11] MEDS ORDERED: INSULIN REGULAR HUMAN 100 UNITS/ML *VIAL IVPUSH ONE (22:33)
[2017-09-11] MEDS ORDERED: SODIUM CHLORIDE 0.9% 500 ML INFUS.BAG IV ONE (22:34)
[2017-09-11] MEDS ORDERED: INSULIN REGULAR HUMAN 100 UNITS/ML *VIAL ONE (22:43)
[2017-09-11] MEDS ORDERED: HEMOQUE TEST 1 EACH EACH ONE ×2 (23:34→23:42)
[2017-09-12 00:05] VITALS: BP 189/97; PULSE 69
--- NOTE | 2017-09-12 09:16 | EKG ---
Test Reason : Blood Pressure : / mmHG Vent. Rate : 076 BPM Atrial Rate : 076 BPM P-R Int : 150 ms QRS Dur : 120 ms QT Int : 410 ms P-R-T Axes : 072 -16 060 degrees QTc Int : 461 ms NORMAL SINUS RHYTHM POSSIBLE LEFT ATRIAL ENLARGEMENT NON-SPECIFIC INTRA-VENTRICULAR CONDUCTION DELAY NONSPECIFIC T WAVE ABNORMALITY ABNORMAL ECG WHEN COMPARED WITH ECG OF 02-FEB-2017 11:31, NONSPECIFIC T WAVE ABNORMALITY NOW EVIDENT IN LATERAL LEADS Confirmed by JUAN CARLOS BELLA MD ([id number]) on 09/12/2017 9:16:22 AM Referred By: DR CABRERA Confirmed By:JUAN CARLOS BELLA MD
== END 2017-09-12 01:10 | disposition home or self-care (01) ==
LOC: FER 18:10
PROC: 3E013VG Introduction of Insulin into Subcutaneous Tissue, Percutaneous Approach (ICD-10-PCS; principal; 2017-09-11)
PROC: 3E0337Z Introduction of Electrolytic and Water Balance Substance into Peripheral Vein, Percutaneous Approach (ICD-10-PCS; 2017-09-11)
DX: J06.9 Acute upper respiratory infection, unspecified (principal); E11.65 Type 2 diabetes mellitus with hyperglycemia; Z79.4 Long term (current) use of insulin; I10 Essential (primary) hypertension; E78.00 Pure hypercholesterolemia, unspecified; Z91.013 Allergy to seafood; Z91.14 Patient's other noncompliance with medication regimen
CPT/HCPCS: 36415; 71046-TC-FY; 80053; 81003; 81015; 82009; 82803; 82947; 82962; 85025; 87070; 87430; 87804; 93005; 99283-25; J7030

== ENCOUNTER 2019-05-01 23:14 | Inpatient (IN) | payer BC ==
--- NOTE | 2019-05-01 23:17 | PDOC ---
History of Present Illness - General Chief Complaint: Respiratory Stated Complaint: COUGHING UP GREEN SPUTUM Time Seen by Provider: 05/01/19 23:17 History Source: Patient Exam Limitations: No Limitations - History of Present Illness Initial Comments: 05/02/19 00:08 This is a 53-year-old morbidly obese male who comes in complaining of shortness of breath and difficulty breathing. Patient said he is coughing up bloody and green phlegm. Patient denies any chest pain, fever, chills, nausea vomiting or diarrhea. Patient has history significant for pulmonary embolism in the past. Patient also had recent travel with a bus trip and then cruise ship. Patient said however he was fine until he got back and then developed the difficulty breathing. Patient denies any pain in his legs. Allergies: as per nursing notes Past Medical History: none Social history: Lives with family. No smoking. No alcohol. No illicit drugs. Surgical history: None General: No fevers or chills, no weakness, no weight loss HEENT: No change in vision. No sore throat,. No ear pain CardioVascular: no chest discomfort. No shortness of breath Respiratory:+ cough, + wheezing. Gastrointestinal: no nausea, vomiting, diarrhea or constipation, No rectal bleeding Genitourinary: No dysuria, hematuria, or frequency Musculoskeletal: No joint or muscle pain or swelling Neurologic: No headache, vertigo, dizziness or loss of consciousness Psychiatric: nor depression Skin: No rashes or easy bruising Endocrine: no increased thirst or abnormal weight change Allergic: no skin or latex allergy All other systems reviewed and normal Exam: General: Well-nourished well-developed individual, no acute distress HEENT: Throat: Normal, tonsils normal, no erythema or exudate Neck: Supple, no meningeal signs, no lymphadenopathy Eyes::Pupils equal reactive and round, extraocular motion intact Chest: Nontender to palpation Cardiac: S1-S2 normal, regular rate and rhythm, no murmurs rubs or gallops Respiratory: There is decreased breath sounds bilateral with diffuse expiratory wheezing expiratory phase greater than inspiratory phase. Patient is also tachypneic. Abdomen: Soft, nondistended, normal bowel sounds, there is no tenderness on palpation diffusely Extremities: Warm, dry, no cyanosis, clubbing, or edema Skin: No rashes Neuro: Alert and oriented x3, CN II - XII intact, nonfocal exam with normal strength, normal sensation, normal reflexes, normal gait, Psych: Normal mood and affect 05/02/19 01:57 Patient is received 2 DuoNeb's with minimal improvement in his symptoms Patient's EKG shows normal sinus rhythm no acute ST-T wave changes Patient's chest x-ray shows no acute pathology but questionable right-sided mass Patient cardiac enzymes are negative Patient's ultrasound Doppler shows a left popliteal DVT Patient will be admitted to an inpatient bed for his difficulty breathing. I think this is unlikely that it is secondary to a PE as his d-dimer is negative even though he has a DVT Patient started on Lovenox Patient admitted to the hospitalist service 05/02/19 01:58 Past History - Past Medical History Allergies/Adverse Reactions: Allergies Allergy/AdvReac Type Severity Reaction Status Date / Time shellfish derived Allergy Severe Hives Verified 05/01/19 23:16 Home Medications: Ambulatory Orders Acetaminophen with Codeine [Tylenol with Codeine #4 Tablet] 1 each PO ASDIR 10/22 Ramipril [Altace] 5 mg PO DAILY 09/11/17 Dapagliflozin Propanediol [Farxiga] 5 mg PO DAILY 05/01/19 Dulaglutide [Trulicity] 0.75 mg SQ WEEKLY 05/01/19 Anemia: No Asthma: No Cancer: No Cardiac Disorders: No CVA: No COPD: No CHF: No Dementia: No Diabetes: Yes Dialysis: Yes GI Disorders: No Disorders: Yes HTN: Yes Hypercholesterolemia: Yes Liver Disease: No Seizures: No Thyroid Disease: No - Surgical History Abdominal Surgery: No Appendectomy: No Cardiac Surgery: No Cholecystectomy: No Lung Surgery: No Neurologic Surgery: No Orthopedic Surgery: Yes (5 RIGHT KNEE SCOPES 1 RIGHT ACL REPAIR WITH SUBSEQUENT REMOVAL OF HARDWARE) - Immunization History Immunization Up to Date: Yes - Psycho Social/Smoking Cessation Hx Smoking History: Unknown if ever smoked Have you smoked in the past 12 months: No Number of Cigarettes Smoked Daily: 0 If you are a former smoker, when did you quit?: OCCASIONAL CIGAR 'Breaking Loose' booklet given: 09/11/17 Hx Alcohol Use: Yes Drug/Substance Use Hx: No Substance Use Type: Alcohol Hx Substance Use Treatment: No ED Treatment Course - LABORATORY CBC & Chemistry Diagram: 05/02/19 00:05 05/02/19 00:05 Discharge - Discharge Information Problems reviewed: Yes Clinical Impression/Diagnosis: Difficulty breathing DVT (deep venous thrombosis) Qualifiers: DVT location: lower extremity Affected thrombotic vein of extremity: popliteal Chronicity: acute Laterality: left Qualified Code(s): I82.432 - Acute embolism and thrombosis of left popliteal vein Condition: Stable - Admission Yes - Follow up/Referral Referrals: Reymundo Huertas MD [Primary Care Provider] - - Patient Discharge Instructions - Post Discharge Activity
[2019-05-02] MEDS ORDERED: predniSONE 20 MG TABLET (UD) ONE (00:12)
[2019-05-02] MEDS ORDERED: ALBUTEROL SO4 2.5/IPRATROPIUM 0.5 INH SOL 3 ML VIAL.NEB. NEB ONE ×6 (00:12→16:49)
[2019-05-02] MEDS ORDERED: predniSONE 20 MG TABLET (UD) PO ONE (00:18)
[2019-05-02 00:45] LABS: BASO % 0.7 % (0-2.0); EOS % 2.7 % (0-4.5); HEMOGLOBIN 13.4 GM/dL (11.7-16.9); LYMPH % 31.3 % (8-40); MCH 32.5 pg (25.7-33.7); MCHC 33.5 g/dl (32.0-35.9); MEAN CELL VOLUME 96.9 fl (80-96); MEAN PLT VOLUME 8.7 fl (7.5-11.1); MONO % 12.6 % (3.8-10.2); NEUT % 52.7 % (42.8-82.8); PLATELET COUNT 223 K/MM3 (134-434); RBC 4.13 M/mm3 (4.00-5.60); RDW 13.9 % (11.9-15.9); WHITE BLOOD COUNT 4.7 K/mm3 (4.0-10.0)
[2019-05-02 00:54] LABS: EPI CELLS 1.2 /HPF (0-5/HPF); HYALINE CASTS 1 /lpf (0-8); PH,URINE 6.5 (5.0-8.0); URINE APPEARANCE CLEAR; URINE BILIRUBIN NEGATIVE (NEGATIVE); URINE COLOR DK YELLOW; URINE GLUCOSE (UA) NEGATIVE (NEGATIVE); URINE KETONE NEGATIVE (NEGATIVE); URINE LEUK ESTERASE NEGATIVE (NEGATIVE); URINE NITRITE NEGATIVE (NEGATIVE); URINE PROTEIN 3+ (NEGATIVE); URINE RBC 4 /hpf (0-4); URINE WBC 0 /hpf (0-5)
[2019-05-02 01:12] LABS: ALBUMIN 3.4 g/dl (3.4-5.0); BILIRUBIN,TOTAL 0.4 mg/dL (0.2-1); BLOOD UREA NITROGEN 21.9 mg/dL (7-18); CALCIUM 8.8 mg/dL (8.5-10.1); CREATININE 1.2 mg/dL (0.55-1.3); N-TERMINAL BNP 95.1 pg/ml (5-125); POTASSIUM 4.7 mmol/L (3.5-5.1); TOT PROT 6.7 g/dl (6.4-8.2)
[2019-05-02 01:14] LABS: INR 1.13 (0.83-1.09); PROTHROMBIN TIME (PATIENT) 13.4 SEC (9.7-13.0)
[2019-05-02] MEDS ORDERED: ENOXAPARIN NA (PORCINE) 100 MG/1 ML DISP.SYRIN SQ STA ×2 (01:30→01:39)
[2019-05-02] MEDS ORDERED: RAMIPRIL 5 MG CAPSULE (FP) PO ONE ×2 (01:35→16:36)
[2019-05-02] MEDS ORDERED: ENOXAPARIN NA (PORCINE) 60 MG/0.6 ML DISP.SYRIN SQ ONE (01:35)
[2019-05-02] MEDS ORDERED: ENOXAPARIN NA (PORCINE) 100 MG/1 ML DISP.SYRIN SQ ONE ×2 (01:36→13:20)
[2019-05-02] MEDS ORDERED: ACETAMINOPHEN WITH CODEINE PO SCH (02:15)
[2019-05-02] MEDS ORDERED: [UNRECOGNIZED DRUG - OTHER] PO SCH (02:15)
[2019-05-02] MEDS ORDERED: PATIENT'S OWN MEDICATION (NON-FORMULARY) (Dulaglutide [Trulicity] 0.75 MG) SQ SCH (02:15)
[2019-05-02 04:22] VITALS: BMI 53.3
[2019-05-02] MEDS: INSULIN SLIDING SCALE (NOVOLOG) 1 VIAL SQ SCH ×3 (06:24→17:18)
[2019-05-02 07:43] LABS: BASO % 0.3 % (0-2.0); EOS % 0.1 % (0-4.5); HEMATOCRIT 38.7 % (35.4-49); HEMOGLOBIN 12.6 GM/dl (11.7-16.9); LYMPH % 16.1 % (8-40); MCH 31.7 pg (25.7-33.7); MCHC 32.5 g/dl (32.0-35.9); MEAN CELL VOLUME 97.6 fl (80-96); MEAN PLT VOLUME 8.4 fl (7.5-11.1); MONO % 3.5 % (3.8-10.2); PLATELET COUNT 212 K/MM3 (134-434); RBC 3.96 M/mm3 (4.00-5.60); RDW 13.2 % (11.9-15.9); WHITE BLOOD COUNT 5.4 K/mm3 (4.0-10.8)
[2019-05-02 07:54] LABS: CALCIUM 8.4 mg/dl (8.5-10); MAGNESIUM 1.8 mg/dL (1.8-2.4); PHOSPHOROUS 3.6 mg/dl (2.5-4.9); POTASSIUM 4.5 mmol/L (3.5-5.1)
--- NOTE | 2019-05-02 09:44 | HP ---
CHIEF COMPLAINT: Shortness of breath PCP: Dr. Huertas HISTORY OF PRESENT ILLNESS: 53 year-old male with a PMH significant for HTN, diastolic dysfunction, h/o PE ( post-op 2006), Type II NIDDM, chronic sinusitis, osteoarthritis, s/p multiple bilateral knee surgeries. Patient presented to the ED for evaluation of SOB. Patient returned from a cruise to the [facility] on Tuesday, 04/29. He disembarked in [place], took a 3 1/2 hour bus ride to [place]. That night, he developed a mild sore throat. On Tuesday morning the sore throat was worse and by the afternoon he felt he could not get a deep breath. He was coughing up green phlegm although this was not new as he has chronic sinusitis. On Tuesday night he had an episode of sweats and chills. On Tuesday morning he had two episodes of vomiting and felt better. Patient had no symptoms of leg or calf pain or tenderness. ER course was notable for: (1) BP 194/104 (2) US: nonocclusive thrombus within left popliteal vein (3) D-dimer <500 (4) Lovenox 160mg x 1 Recent Travel: 04/22-->04/29 [employer] cruise from [place] to 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; lives with and son Smokin-2 cigars per month for years Alcohol: rare Drugs: no Family history: parents killed in MVC when he was 3; 2 younger brothers a&w; 3 children a&w Allergies shellfish derived Allergy (Severe, Verified 05/01/19 23:16) Hives swelling HOME MEDICATIONS: Home Medications Medication Instructions Recorded Acetaminophen with Codeine 1 each PO ASDIR 09/11/17 [Tylenol with Codeine #4 Tablet] Ramipril [Altace] 5 mg PO DAILY 09/11/17 Dapagliflozin Propanediol [Farxiga] 5 mg PO DAILY 05/01/19 Dulaglutide [Trulicity] 0.75 mg SQ WEEKLY 05/01/19 REVIEW OF SYSTEMS CONSTITUTIONAL: +fever, sweats, chills Absent: fever, chills, diaphoresis, generalized weakness, malaise, loss of appetite, weight change HEENT: Absent: rhinorrhea, nasal congestion, throat pain, throat swelling, difficulty swallowing, mouth swelling, ear pain, eye pain, visual changes CARDIOVASCULAR: Absent: chest pain, syncope, palpitations, irregular heart rate, lightheadedness , peripheral edema RESPIRATORY: +SOB, cough, sinus congestion, yellow nasal discharge Absent: dyspnea with exertion, orthopnea, wheezing, stridor, hemoptysis GASTROINTESTINAL: Absent: abdominal pain, abdominal distension, nausea, vomiting, diarrhea, constipation, melena, hematochezia GENITOURINARY: Absent: dysuria, frequency, urgency, hesitancy, hematuria, flank pain, genital pain MUSCULOSKELETAL: Absent: myalgia, arthralgia, joint swelling, back pain, neck pain SKIN: Absent: rash, itching, pallor HEMATOLOGIC/IMMUNOLOGIC: Absent: easy bleeding, easy bruising, lymphadenopathy, frequent infections ENDOCRINE: Absent: unexplained weight gain, unexplained weight loss, heat intolerance, cold intolerance NEUROLOGIC: Absent: headache, focal weakness or paresthesias, dizziness, unsteady gait, seizure, mental status changes, bladder or bowel incontinence PSYCHIATRIC: Absent: anxiety, depression, suicidal or homicidal ideation, hallucinations. PHYSICAL EXAMINATION Vital Signs - 24 hr 05/01/19 05/02/19 05/02/19 23:22 01:37 02:39 Temperature 98.8 F 98.8 F Pulse Rate 88 Pulse Rate [ Left] Pulse Rate [ 92 H Right] Respiratory 34 H 24 H Rate Blood Pressure 199/104 H Blood Pressure 201/99 H [Left Arm] Blood Pressure [Right Arm] O2 Sat by Pulse 100 96 Oximetry (%) 05/02/19 05/02/19 05/02/19 02:45 04:23 06:00 Temperature 98.3 F Pulse Rate 85 Pulse Rate [ 95 H Left] Pulse Rate [ Right] Respiratory 24 H 19 Rate Blood Pressure 177/82 H Blood Pressure [Left Arm] Blood Pressure 196/112 H [Right Arm] O2 Sat by Pulse 95 95 Oximetry (%) 05/02/19 05/02/19 06:35 09:24 Temperature 98.7 F Pulse Rate 82 Pulse Rate [ Left] Pulse Rate [ Right] Respiratory 19 Rate Blood Pressure 184/88 H Blood Pressure [Left Arm] Blood Pressure [Right Arm] O2 Sat by Pulse 92 L 95 Oximetry (%) GENERAL: Awake, alert, and fully oriented, in no acute distress. HEAD: Normal with no signs of trauma. EYES: Pupils equal, round and reactive to light, extraocular movements intact, sclera anicteric, conjunctiva clear. LUNGS: Breath sounds equal, clear to auscultation bilaterally. No wheezes, and no crackles. No accessory muscle use. HEART: Regular rate and rhythm, normal S1 and S2 ABDOMEN: Soft, nontender, not distended MUSCULOSKELETAL: Normal range of motion at all joints. No bony deformities or tenderness. No CVA tenderness. UPPER EXTREMITIES: 2+ pulses, warm, well-perfused. No cyanosis. No clubbing. No peripheral edema. LOWER EXTREMITIES: 2+ pulses, warm, well-perfused. No calf tenderness. No peripheral edema. NEUROLOGICAL: Cranial nerves II-XII intact. Normal speech. Normal gait. Laboratory Results - last 24 hr 05/02/19 05/02/19 05/02/19 00:05 00:05 00:05 WBC 4.7 RBC 4.13 Hgb 13.4 Hct 40.0 D MCV 96.9 H MCH 32.5 MCHC 33.5 RDW 13.9 Plt Count 223 MPV 8.7 Absolute Neuts (auto) 2.5 Neutrophils % 52.7 Lymphocytes % 31.3 D Monocytes % 12.6 H Eosinophils % 2.7 Basophils % 0.7 Nucleated RBC % 0 PT with INR INR D-Dimer 463 Sodium 139 Potassium 4.7 Chloride 104 Carbon Dioxide 29 Anion Gap 6 L BUN 21.9 H Creatinine 1.2 Est GFR (CKD-EPI)AfAm 79.53 Est GFR (CKD-EPI)NonAf 68.62 POC Glucometer Random Glucose 212 H Lactic Acid Calcium 8.8 Phosphorus Magnesium Total Bilirubin 0.4 AST 43 H ALT 47 Alkaline Phosphatase 129 H Creatine Kinase Creatine Kinase Index CK-MB (CK-2) Troponin I B-Natriuretic Peptide Total Protein 6.7 Albumin 3.4 Urine Color Urine Appearance Urine pH Ur Specific [place] Urine Protein Urine Glucose (UA) Urine Ketones Urine Blood Urine Nitrite Urine Bilirubin Urine Urobilinogen Ur Leukocyte Esterase Urine WBC (Auto) Urine RBC (Auto) Urine Casts (Auto) U Epithel Cells (Auto) Urine Bacteria (Auto) 05/02/19 05/02/19 05/02/19 00:05 00:05 00:05 WBC RBC Hgb Hct MCV MCH MCHC RDW Plt Count MPV Absolute Neuts (auto) Neutrophils % Lymphocytes % Monocytes % Eosinophils % Basophils % Nucleated RBC % PT with INR 13.40 H INR 1.13 H D-Dimer Sodium Potassium Chloride Carbon Dioxide Anion Gap BUN Creatinine Est GFR (CKD-EPI)AfAm Est GFR (CKD-EPI)NonAf POC Glucometer Random Glucose Lactic Acid 1.4 Calcium Phosphorus Magnesium Total Bilirubin AST ALT Alkaline Phosphatase Creatine Kinase 670 H Creatine Kinase Index 0.8 CK-MB (CK-2) 5.5 H Troponin I < 0.02 B-Natriuretic Peptide 95.1 Total Protein Albumin Urine Color Urine Appearance Urine pH Ur Specific [place] Urine Protein Urine Glucose (UA) Urine Ketones Urine Blood Urine Nitrite Urine Bilirubin Urine Urobilinogen Ur Leukocyte Esterase Urine WBC (Auto) Urine RBC (Auto) Urine Casts (Auto) U Epithel Cells (Auto) Urine Bacteria (Auto) 05/02/19 05/02/19 05/02/19 00:05 06:06 07:05 WBC 5.4 RBC 3.96 L Hgb 12.6 Hct 38.7 MCV 97.6 H MCH 31.7 MCHC 32.5 RDW 13.2 Plt Count 212 D MPV 8.4 Absolute Neuts (auto) 4.2 Neutrophils % 80.0 D Lymphocytes % 16.1 D Monocytes % 3.5 L Eosinophils % 0.1 D Basophils % 0.3 Nucleated RBC % PT with INR INR D-Dimer Sodium Potassium Chloride Carbon Dioxide Anion Gap BUN Creatinine Est GFR (CKD-EPI)AfAm Est GFR (CKD-EPI)NonAf POC Glucometer 314 Random Glucose Lactic Acid Calcium Phosphorus Magnesium Total Bilirubin AST ALT Alkaline Phosphatase Creatine Kinase Creatine Kinase Index CK-MB (CK-2) Troponin I B-Natriuretic Peptide Total Protein Albumin Urine Color Dk yellow Urine Appearance Clear Urine pH 6.5 D Ur Specific [place] 1.024 Urine Protein 3+ H Urine Glucose (UA) Negative Urine Ketones Negative Urine Blood Negative Urine Nitrite Negative Urine Bilirubin Negative Urine Urobilinogen 1.0 Ur Leukocyte Esterase Negative Urine WBC (Auto) 0 Urine RBC (Auto) 4 Urine Casts (Auto) 1 U Epithel Cells (Auto) 1.2 Urine Bacteria (Auto) 1.0 05/02/19 07:05 WBC RBC Hgb Hct MCV MCH MCHC RDW Plt Count MPV Absolute Neuts (auto) Neutrophils % Lymphocytes % Monocytes % Eosinophils % Basophils % Nucleated RBC % PT with INR INR D-Dimer Sodium 137 Potassium 4.5 Chloride 104 Carbon Dioxide 26 Anion Gap 7 L BUN 23.0 H Creatinine 1.0 Est GFR (CKD-EPI)AfAm 99.15 Est GFR (CKD-EPI)NonAf 85.55 POC Glucometer Random Glucose 286 H Lactic Acid Calcium 8.4 L Phosphorus 3.6 Magnesium 1.8 Total Bilirubin AST ALT Alkaline Phosphatase Creatine Kinase Creatine Kinase Index CK-MB (CK-2) Troponin I B-Natriuretic Peptide Total Protein Albumin Urine Color Urine Appearance Urine pH Ur Specific [place] Urine Protein Urine Glucose (UA) Urine Ketones Urine Blood Urine Nitrite Urine Bilirubin Urine Urobilinogen Ur Leukocyte Esterase Urine WBC (Auto) Urine RBC (Auto) Urine Casts (Auto) U Epithel Cells (Auto) Urine Bacteria (Auto) ASSESSMENT/PLAN 53 year-old male with a PMH significant for HTN, diastolic dysfunction, Type II NIDDM, chronic sinusitis, osteoarthritis, s/p multiple bilateral knee surgeries. Admitted for shortness of breath, cough, left popliteal DVT. Left popliteal DVT h/o pulmonary embolism --no previous history of DVT --h/o PE in 2006, one week following knee surgery; recalls being on anticoagulant injections for two weeks only, not on a/c thereafter --continue lovenox 1mg/kg q12h --outpatient heme workup Shortness of breath Cough Acute on chronic sinusitis --afebrile, no leukocytosis, satting 96% on room air, lungs clear on exam, + yellow nasal congestion --likely acute on chronic sinusitis --duonebs --start augmentin --CXR pending --flu swab ordered --pre post Hypertension --BP elevated --increase home Ramipril from 5 to 10mg daily Diastolic dysfunction --seenn on 2016 echo --not on diuretics --appears euvolemic Type II NIDDM --Novolog sliding scale covrage --Hgb A1C 6.5 (12/2018) Osteoarthritis s/p multiple bilateral knee surgeries --sees Dr. Hill for pain management --oxycodone q6h PRN FEN Fluids: PO intake adequate Electrolytes: replete as indicated Nutrition: diabetic diet DVT prophylaxis: on full dose lovenox Dispo: continues to require inpatient care. Full code. Visit type - Emergency Visit Emergency Visit: Yes ED Registration Date: 05/02/19 Care time: The patient presented to the Emergency Department on the above date and was hospitalized for further evaluation of their emergent condition. - New Patient This patient is new to me today: Yes Date on this admission: 05/02/19 - Critical Care Critical Care patient: No
[2019-05-02] MEDS ORDERED: RAMIPRIL 5 MG CAPSULE (FP) PO SCH (10:00)
[2019-05-02] MEDS ORDERED: PATIENT'S OWN MEDICATION (NON-FORMULARY) (Dapagliflozin Propanediol [Farxiga] 5 MG) PO SCH (10:00)
[2019-05-02] MEDS ORDERED: RAMIPRIL 2.5 MG CAPSULE (FP) PO SCH (10:00)
[2019-05-02] MEDS ORDERED: ENOXAPARIN NA (PORCINE) 120 MG/0.8 ML DISP.SYRIN SQ SCH ×2 (13:00)
[2019-05-02] MEDS ORDERED: ENOXAPARIN NA (PORCINE) 80 MG/0.8 ML DISP.SYRIN SQ ONE (13:20)
[2019-05-02] MEDS: ENOXAPARIN 100 MG, ENOXAPARIN 80 MG SQ SCH (13:28)
[2019-05-02] MEDS ORDERED: AMOX TR/POT CLAV 875MG/125MG TABLETS (FP) PO SCH (13:30)
[2019-05-02] MEDS: oxyCODONE HCL 5 MG TABLET PO PRN ×2 (13:45→22:18)
--- NOTE | 2019-05-02 16:49 | EKG ---
Test Reason : Blood Pressure : / mmHG Vent. Rate : 088 BPM Atrial Rate : 088 BPM P-R Int : 142 ms QRS Dur : 108 ms QT Int : 382 ms P-R-T Axes : 052 -18 105 degrees QTc Int : 462 ms NORMAL SINUS RHYTHM T WAVE ABNORMALITY, CONSIDER LATERAL ISCHEMIA ABNORMAL ECG Confirmed by MD JUANCHO, YOON ([id number]) on 05/02/2019 4:48:54 PM Referred By: VADIM KUMAR Confirmed By:YOON DAWKINS MD
[2019-05-02] MEDS ORDERED: AZITHROMYCIN IVPB 500 MG in DEXTROSE 5%-WATER - 250 ML IVPB ONE (18:09)
[2019-05-02] MEDS ORDERED: FUROSEMIDE 40 MG/4 ML INJECTABLE VIAL IVPUSH ONE (18:14)
[2019-05-02] MEDS ORDERED: CEFTRIAXONE 1 GM in DEXTROSE 5%-WATER - 50 ML IVPB SCH (18:30)
[2019-05-02] MEDS ORDERED: AZITHROMYCIN IVPB 500 MG/250 ML BAG IVPB ONE (18:30)
[2019-05-02] MEDS: IBUPROFEN 600 MG TABLET (FP) PO PRN (18:43)
[2019-05-02] MEDS: ALBUTEROL SO4 2.5/IPRATROPIUM 0.5 INH SOL 3 ML VIAL.NEB. NEB SCH (20:53)
[2019-05-02] MEDS ORDERED: INSULIN SLIDING SCALE (NOVOLOG) 1 VIAL SQ SCH (22:00)
[2019-05-02] MEDS: FLUTICASONE PROP 0.05% 16 GM NASAL SPRAY NS SCH (22:01)
[2019-05-03] MEDS ORDERED: ENOXAPARIN NA (PORCINE) 100 MG/1 ML DISP.SYRIN SQ ONE (01:49)
[2019-05-03] MEDS ORDERED: ENOXAPARIN NA (PORCINE) 80 MG/0.8 ML DISP.SYRIN SQ ONE (01:49)
[2019-05-03] MEDS: ENOXAPARIN 100 MG, ENOXAPARIN 80 MG SQ SCH (01:51)
[2019-05-03] MEDS ORDERED: ACETAMINOPHEN 325 MG TABLET (FP) PO PRN (01:56)
[2019-05-03] MEDS: IBUPROFEN 600 MG TABLET (FP) PO PRN (01:56)
[2019-05-03] MEDS ORDERED: metoPROLOL SUCCINATE 25 MG TAB.SR.24H (FP) PO ONE (02:00)
[2019-05-03] MEDS: INSULIN SLIDING SCALE (NOVOLOG) 1 VIAL SQ SCH ×2 (06:31→10:50)
[2019-05-03] MEDS: oxyCODONE HCL 5 MG TABLET PO PRN (06:34)
--- NOTE | 2019-05-03 07:32 | PN ---
Physical Exam: SUBJECTIVE: Patient seen and examined OBJECTIVE: Vital Signs Period Temp Pulse Resp BP Sys/Kay Pulse Ox Last 24 Hr 97.9 F-98.7 F 72-88 17-20 171-193/76-106 95-98 GENERAL: The patient is awake, alert, and fully oriented, in no acute distress. HEAD: Normal with no signs of trauma. EYES: PERRL, extraocular movements intact, sclera anicteric, conjunctiva clear. No ptosis. ENT: Ears normal, nares patent, oropharynx clear without exudates, moist mucous membranes. NECK: Trachea midline, full range of motion, supple. LUNGS: Breath sounds equal, clear to auscultation bilaterally, no wheezes, no crackles, no accessory muscle use. HEART: Regular rate and rhythm, S1, S2 without murmur, rub or gallop. ABDOMEN: Soft, nontender, nondistended, normoactive bowel sounds, no guarding, no rebound, no hepatosplenomegaly, no masses. EXTREMITIES: 2+ pulses, warm, well-perfused, no edema. NEUROLOGICAL: Cranial nerves II through XII grossly intact. Normal speech, gait not observed. PSYCH: Normal mood, normal affect. SKIN: Warm, dry, normal turgor, no rashes or lesions noted Laboratory Results - last 24 hr 05/02/19 05/02/19 05/02/19 07:05 07:05 10:23 WBC 5.4 RBC 3.96 L Hgb 12.6 Hct 38.7 MCV 97.6 H MCH 31.7 MCHC 32.5 RDW 13.2 Plt Count 212 D MPV 8.4 Absolute Neuts (auto) 4.2 Neutrophils % 80.0 D Lymphocytes % 16.1 D Monocytes % 3.5 L Eosinophils % 0.1 D Basophils % 0.3 Sodium 137 Potassium 4.5 Chloride 104 Carbon Dioxide 26 Anion Gap 7 L BUN 23.0 H Creatinine 1.0 Est GFR (CKD-EPI)AfAm 99.15 Est GFR (CKD-EPI)NonAf 85.55 POC Glucometer 215 Random Glucose 286 H Calcium 8.4 L Phosphorus 3.6 Magnesium 1.8 Influenza A (Rapid) Influenza B (Rapid) 05/02/19 05/02/19 05/02/19 16:52 17:15 22:00 WBC RBC Hgb Hct MCV MCH MCHC RDW Plt Count MPV Absolute Neuts (auto) Neutrophils % Lymphocytes % Monocytes % Eosinophils % Basophils % Sodium Potassium Chloride Carbon Dioxide Anion Gap BUN Creatinine Est GFR (CKD-EPI)AfAm Est GFR (CKD-EPI)NonAf POC Glucometer 150 177 Random Glucose Calcium Phosphorus Magnesium Influenza A (Rapid) Negative Influenza B (Rapid) Negative 05/03/19 05/03/19 04:18 06:30 WBC RBC Hgb Hct MCV MCH MCHC RDW Plt Count MPV Absolute Neuts (auto) Neutrophils % Lymphocytes % Monocytes % Eosinophils % Basophils % Sodium Potassium Chloride Carbon Dioxide Anion Gap BUN Creatinine Est GFR (CKD-EPI)AfAm Est GFR (CKD-EPI)NonAf POC Glucometer 156 160 Random Glucose Calcium Phosphorus Magnesium Influenza A (Rapid) Influenza B (Rapid) Active Medications Generic Name Dose Route Start Last Admin Trade Name Freq PRN Reason Stop Dose Admin Acetaminophen 650 mg 05/03/19 01:56 Tylenol - PO Q4H PRN PAIN 1-5 Albuterol/Ipratropium 1 amp 05/02/19 20:00 05/02/19 20:53 Duoneb - NEB Not Given RQID JAY Enoxaparin Sodium 100 mg/ 180 mg 05/02/19 13:00 05/03/19 01:51 Enoxaparin Sodium 80 mg SQ 180 mg Q12H JAY Administration Fluticasone Propionate 1 spray 05/02/19 17:30 05/02/19 22:01 Flonase - NS 1 spray BID JAY Administration Azithromycin 250 mg/ Sodium 250 mls @ 250 mls/hr 05/03/19 10:00 Chloride IVPB 05/06/19 10:59 DAILY JAY Ceftriaxone Sodium 50 mls @ 100 mls/hr 05/03/19 10:00 Ceftriaxone 1 Gm-D5w Bag IVPB DAILY JAY Protocol Ibuprofen 600 mg 05/02/19 18:03 05/03/19 01:56 Motrin - PO 600 mg Q8H PRN Administration PAIN LEVEL 1-5 Insulin Aspart 1 vial 05/02/19 22:00 05/02/19 22:02 Novolog Vial Sliding Scale - SQ Not Given HS JAY Protocol Insulin Aspart 1 vial 05/02/19 07:00 05/03/19 06:31 Novolog Vial Sliding Scale - SQ 2 units TIDAC JAY Administration Protocol Oxycodone HCl 10 mg 05/02/19 13:19 05/03/19 06:34 Roxicodone - PO 10 mg Q6H PRN Administration PAIN LEVEL 6-10 Ramipril 10 mg 05/03/19 10:00 Altace - PO DAILY [facility] ASSESSMENT/PLAN:
[2019-05-03] MEDS ORDERED: RAMIPRIL 5 MG CAPSULE (FP) PO SCH ×2 (07:45→10:00)
[2019-05-03] MEDS: ALBUTEROL SO4 2.5/IPRATROPIUM 0.5 INH SOL 3 ML VIAL.NEB. NEB SCH (07:59)
--- NOTE | 2019-05-03 08:14 | DS ---
Physical Exam: SUBJECTIVE: Patient seen and examined OBJECTIVE: Vital Signs Period Temp Pulse Resp BP Sys/Kay Pulse Ox Last 24 Hr 97.9 F-98.7 F 72-88 17-20 171-193/76-106 95-98 PHYSICAL EXAM GENERAL: The patient is awake, alert, and fully oriented, in no acute distress. LUNGS: Breath sounds equal, clear to auscultation bilaterally HEART: Regular rate and rhythm, S1, S2 ABDOMEN: Soft, nontender, nondistended EXTREMITIES: 2+ pulses, warm, well-perfused, no edema. NEUROLOGICAL: Cranial nerves II through XII grossly intact. Normal speech, gait not observed. PSYCH: Normal mood, normal affect. SKIN: Warm, dry, normal turgor, no rashes or lesions noted. LABS Laboratory Results - last 24 hr 05/02/19 05/02/19 05/02/19 10:23 16:52 17:15 POC Glucometer 215 150 Influenza A (Rapid) Negative Influenza B (Rapid) Negative 05/02/19 05/03/19 05/03/19 22:00 04:18 06:30 POC Glucometer 177 156 160 Influenza A (Rapid) Influenza B (Rapid) HOSPITAL COURSE: Date of Admission:05/02/19 Date of Discharge: 05/03/19 Pre hospital course 53 year-old male with a PMH significant for HTN, diastolic dysfunction, h/o PE ( post-op 2006), Type II NIDDM, chronic sinusitis, osteoarthritis, s/p multiple bilateral knee surgeries. Patient presented to the ED for evaluation of SOB. Patient returned from a cruise to the [facility] on Tuesday, 04/29. He disembarked in [place], took a 3 1/2 [address] bus ride to [place]. That night, he developed a mild sore throat. On Tuesday morning the sore throat was worse and by the afternoon he felt he could not get a deep breath. He was coughing up green phlegm although this was not new as he has chronic sinusitis. On Tuesday night he had an episode of sweats and chills. On Tuesday morning he had two episodes of vomiting and felt better. Patient had no symptoms of leg or calf pain or tenderness. ER course (1) BP 194/104 (2) US: nonocclusive thrombus within left popliteal vein (3) D-dimer <500 (4) Lovenox 160mg x 1 Subsequent hospital course 53 year-old male with a PMH significant for HTN, diastolic dysfunction, Type II NIDDM, chronic sinusitis, osteoarthritis, s/p multiple bilateral knee surgeries. Admitted for shortness of breath, cough, left popliteal DVT. Left popliteal DVT h/o pulmonary embolism --h/o PE in 2006, one week following knee surgery; recalls being on anticoagulant injections for two weeks only, not on a/c thereafter --initially treated with lovenox 1mg/kg q12h, discharged on Eliquis --outpatient heme workup strongly encouraged Acute on chronic sinusitis Possible early right infiltrate c/w CAP --afebrile, no leukocytosis, satting 96% on room air, lungs clear on exam, + yellow nasal congestion --started on augmentin, discharged with script Hypertension --BP elevated --increased home Ramipril from 5 to 10mg daily Diastolic dysfunction --seen on 2016 echo --central congestive changes seen on CXR but patient refused diuretic Type II NIDDM --Novolog sliding scale covrage --Hgb A1C 6.5 (12/2018) Osteoarthritis s/p multiple bilateral knee surgeries --sees Dr. Hill for pain management --oxycodone q6h PRN Minutes to complete discharge: 35 Discharge Summary Problems reviewed: Yes Reason For Visit: DVT, DIFFICULTY BREATHING Current Active Problems DVT (deep venous thrombosis) (Acute) Difficulty breathing (Acute) Condition: Improved - Instructions Diet, Activity, Other Instructions: Two prescriptions have been sent to your pharmacy. One is for augmentin ( antibiotic) and the other is for Eliquis (blood thinner). Take these medications as directed. You MUST follow up with Dr. Huertas within one week of your discharge. You MUST also follow up with a department mgr who will treat you for the blood clot in your leg. Stay on the Eliquis until Dr. Huertas or the department mgr tells you otherwise. Contact information for Dr. Mirlande Hilario is enclosed in this discharge packet. Referrals: Reymundo Huertas MD [Primary Care Provider] - 1 Week Mirlande Hilario MD [Staff Physician] - 1 Week Disposition: HOME - Home Medications Comprehensive Discharge Medication List: Ambulatory Orders Acetaminophen with Codeine [Tylenol with Codeine #4 Tablet] 1 each PO ASDIR 10/22 Ramipril [Altace] 5 mg PO DAILY 09/11/17 Dapagliflozin Propanediol [Farxiga] 5 mg PO DAILY 05/01/19 Dulaglutide [Trulicity] 0.75 mg SQ WEEKLY 05/01/19 Amox-Tr/K Cl [Augmentin 875-125mg Tablet -] 1 tab PO BID #20 tablet 05/03/19 This patient is new to me today: No Emergency Visit: Yes ED Registration Date: 05/02/19 Care time: The patient presented to the Emergency Department on the above date and was hospitalized for further evaluation of their emergent condition. Critical Care patient: No - Discharge Referral [facility]erred [facility] Med P.[facility].: No
[2019-05-03] MEDS ORDERED: PT OWN MED DRAWER 7, Y5N ONE (09:11)
[2019-05-03] MEDS ORDERED: cefTRIAXone SODIUM 1 GM VIAL ONE (09:11)
[2019-05-03] MEDS ORDERED: SODIUM CHLORIDE 50 ML IVPB ONE (09:12)
[2019-05-03 09:44] VITALS: BP 176/92; PULSE 92; TEMP 98.2
[2019-05-03] MEDS: FLUTICASONE PROP 0.05% 16 GM NASAL SPRAY NS SCH (09:46)
[2019-05-03] MEDS ORDERED: CEFTRIAXONE 1 G/50 ML PREMIX 50 ML IVPB SCH (10:00)
[2019-05-03] MEDS ORDERED: CEFTRIAXONE 1 GM in SODIUM CHLORIDE 50 ML IVPB SCH (10:00)
[2019-05-03] MEDS ORDERED: AZITHROMYCIN IVPB 250 MG in SODIUM CHLORIDE 250 ML IVPB SCH (10:00)
== END 2019-05-03 11:02 | disposition home or self-care (01) | DRG 300 ==
LOC: FER 23:14 → FM/S 05-02 02:10
PROVIDERS: ADMIT Internal Medicine; ATTEND Nurse Practitioner Acute Care
DX: I82.432 Acute embolism and thrombosis of left popliteal vein (principal); Z68.43 Body mass index [BMI] 50.0-59.9, adult; E66.01 Morbid (severe) obesity due to excess calories; I10 Essential (primary) hypertension; E11.9 Type 2 diabetes mellitus without complications; J01.90 Acute sinusitis, unspecified; M17.0 Bilateral primary osteoarthritis of knee; Z86.711 Personal history of pulmonary embolism
CPT/HCPCS: 36415; 71046-TC-FY; 80048; 80053; 81003; 82550; 82553; 82962; 83605; 83735; 83880; 84100; 84484; 85025; 85379; 85610; 87804; 93005; 93970-TC; 94640; 99285-25

== ENCOUNTER 2021-05-28 21:43 | Emergency (ER) | payer BC ==
[2021-05-28] MEDS ORDERED: LIDOCAINE 5% TOPICAL PATCH TP ONE ×2 (21:56→22:35)
[2021-05-28] MEDS ORDERED: ACETAMINOPHEN 500 MG TABLET (FP) PO ONE (21:56)
[2021-05-28 21:58] VITALS: BP 198/87; PULSE 94; TEMP 99.1; BMI 53.8
[2021-05-28] MEDS ORDERED: ACETAMINOPHEN 325 MG TABLET (FP) ONE (21:59)
[2021-05-28] MEDS ORDERED: LIDOCAINE 5% TOPICAL PATCH ONE ×2 (21:59→22:39)
[2021-05-28] MEDS ORDERED: KETOROLAC TROMETHAMINE 60 MG/2 ML VIAL IM ONE (21:59)
[2021-05-28] MEDS ORDERED: LIDOCAINE PATCH REMOVAL MC SCH ×2 (22:00)
[2021-05-28] MEDS ORDERED: KETOROLAC TROMETHAMINE 60 MG/2 ML VIAL ONE (22:01)
== END 2021-05-28 22:53 | disposition home or self-care (01) ==
LOC: FER 21:43
PROC: 3E023GC Introduction of Other Therapeutic Substance into Muscle, Percutaneous Approach (ICD-10-PCS; principal; 2021-05-28)
DX: M54.50 Low back pain, unspecified (principal)
CPT/HCPCS: 96372; 99284-25

== ENCOUNTER 2022-01-09 16:23 | Emergency (ER) | payer OTHER, BC ==
[2022-01-09] MEDS ORDERED: IBUPROFEN 400 MG TABLET (FP) PO ONE ×2 (16:27→17:01)
[2022-01-09 17:03] VITALS: TEMP 98; BMI 48.8
[2022-01-09] MEDS ORDERED: ACETAMINOPHEN 325 MG TABLET (FP) PO ONE (17:03)
[2022-01-09] MEDS ORDERED: ACETAMINOPHEN 325 MG TABLET (FP) ONE (17:18)
[2022-01-09] MEDS ORDERED: LIDOCAINE 5% TOPICAL PATCH TP ONE ×2 (17:21→17:35)
[2022-01-09 17:22] LABS: HEMATOCRIT 34.4 % (35.4-49); HEMOGLOBIN 11.4 G/dL (11.7-16.9); MCH 33.6 pg (25.7-33.7); MCHC 33.1 g/dl (32.0-35.9); MEAN CELL VOLUME 101.4 fl (80-96); MEAN PLT VOLUME 8.3 fl (7.5-11.1); PLATELET COUNT 278.2 10^3/uL (134-434); RBC 3.39 10^6/uL (4.00-5.60); RDW 14.7 % (11.9-15.9); WHITE BLOOD COUNT 6.4 10^3/uL (4.0-10.8)
[2022-01-09] MEDS ORDERED: LIDOCAINE 5% TOPICAL PATCH ONE (17:26)
[2022-01-09 17:27] LABS: PLATELET ESTIMATE ADEQUATE
[2022-01-09 17:31] LABS: ALBUMIN 3.7 g/dl (3.4-5.0); BILIRUBIN,TOTAL 0.9 mg/dl (0.2-1); CALCIUM 9.6 mg/dl (8.5-10); CREATININE 1.4 mg/dl (0.55-1.3); TOT PROT 6.4 g/dl (6.4-8.2)
[2022-01-09] MEDS ORDERED: KETOROLAC TROMETHAMINE 60 MG/2 ML VIAL IM ONE (19:33)
[2022-01-09] MEDS ORDERED: KETOROLAC TROMETHAMINE 60 MG/2 ML VIAL ONE (19:37)
[2022-01-09 19:51] VITALS: BP 158/76; PULSE 89; RESP 18
[2022-01-09] MEDS ORDERED: LIDOCAINE PATCH REMOVAL MC SCH ×2 (22:00)
== END 2022-01-09 19:50 | disposition home or self-care (01) ==
LOC: FER 16:23
PROC: 3E0233Z Introduction of Anti-inflammatory into Muscle, Percutaneous Approach (ICD-10-PCS; principal; 2022-01-09)
DX: R07.89 Other chest pain (principal)
CPT/HCPCS: 36415; 71046-TC-FY; 80053; 84484; 85025; 93005; 99285-25

== ENCOUNTER 2022-01-13 22:41 | Emergency (ER) | payer OTHER, BC ==
[2022-01-14] MEDS ORDERED: KETOROLAC TROMETHAMINE 60 MG/2 ML VIAL IM ONE (00:03)
[2022-01-14] MEDS ORDERED: RAMIPRIL 5 MG CAPSULE PO ONE (00:09)
[2022-01-14] MEDS ORDERED: KETOROLAC TROMETHAMINE 60 MG/2 ML VIAL ONE (00:44)
[2022-01-14 01:07] VITALS: BP 210/85; PULSE 72; RESP 18; TEMP 98; BMI 46.0
== END 2022-01-14 03:30 | disposition home or self-care (01) ==
LOC: FER 22:41
PROC: 3E0233Z Introduction of Anti-inflammatory into Muscle, Percutaneous Approach (ICD-10-PCS; principal; 2022-01-13)
DX: M54.50 Low back pain, unspecified (principal); V89.2XXA Person injured in unspecified motor-vehicle accident, traffic, initial encounter
CPT/HCPCS: 71046-TC-FY; 71120-TC-FY; 71250-TC; 99285-25